=== PATIENT | female | born 1955 | race African-American/Black ===

== ENCOUNTER → 2020-10-16 10:01 | Outpatient (BNVA) | payer OTHER, SELFPAY | PROVIDERS: PCP Internal Medicine; Visit Provider Internal Medicine Pulmonary Disease | DX: J44.9 Chronic obstructive pulmonary disease, unspecified (principal); R06.00 Dyspnea, unspecified; I35.1 Nonrheumatic aortic (valve) insufficiency; I51.89 Other ill-defined heart diseases; R05 Cough; F17.200 Nicotine dependence, unspecified, uncomplicated; Z79.899 Other long term (current) drug therapy | CPT/HCPCS: 99212 ==

== ENCOUNTER → 2020-10-31 14:14 | Outpatient (BNVA) | payer OTHER, SELFPAY | PROVIDERS: Visit Provider Internal Medicine Cardiovascular Disease | DX: I35.1 Nonrheumatic aortic (valve) insufficiency (principal); R06.00 Dyspnea, unspecified; R07.89 Other chest pain; R94.31 Abnormal electrocardiogram [ECG] [EKG] | CPT/HCPCS: 93005; 99202 ==

== ENCOUNTER → 2020-12-12 08:11 | Outpatient (REF) | payer OTHER, SELFPAY ==
--- NOTE | 2020-12-12 | CA_ITS ---
Acquisition Time: 2020-12-12 09:27:55 Total Exercise Time: 00:04:45 Test Indications: Dyspnea Medications: SEE H Protocol: MARISELA Max HR: 139 BPM 88% of Pred: 157 BPM Max BP: 176/094 mmHG Max Work Load: 4.9 METS Exercise stress test using Marisela protocol, total of 4 min 45 sec. Pt tolerated well feeling SOB in second sdtage. Second stage held. METS 4.90 and TAPHR up to 88 %. Reports SOB and chest thightness that resolve in recovery. EKG with some PVC's in recovery, mild anterolateral ST depressions . Pt hypertensive home BP meds given. Nuclear images to follow. Test reviewed with Dr. Segal Referred By: Evens Mcneal Overread By: Angeles Walsh
--- NOTE | 2020-12-12 08:33 | NM_ITS ---
Exercise Myocardial perfusion study Indication: Shortness of breath evaluate for myocardial ischemia Technique: The patient was brought in for an exercise perfusion study on 12/12/2020. Patient performed exercise as per Tremaine protocol and was injected 25 mCi of sestamibi was given intravenously one target HR was achieved. Images were obtained using the SPECT gamma camera interlaced with the gating device. Images were obtained in supine position. Resting perfusion study was performed on 12/14/2020. Patient was administered 25 mCi of sestamibi intravenously at rest. Images were then obtained in supine position. Images were obtained with and without CT attenuation. Total DLP 61 mGy-cm. Images were processed with the software and compared side to side in short axis, horizontal long axis and vertical long axis views. Findings: The stress perfusion study showed non attenuated images show normal uptake of radiotracer in all segments of LV myocardium. Impression corrected images show minimally reduced uptake in the apex of the LV myocardium. The gated study shows normal LV systolic function with calculated LVEF of 74%. LV cavity is normal in size. The gated study shows normal systolic wall thickening and contraction of all segments. There is no transient ischemic dilation. Resting study shows no change in perfusion pattern compared to stress perfusion study. Gating at rest reveals normal systolic wall motion with ejection fraction at 57%. The findings are consistent with normal myocardial perfusion. NM/NM cardiolite stress test Impression: 1. Normal myocardial perfusion 2. Gated LVEF is 74% 3. Transient ischemic dilatation not present Stress EKG is equivocal for ischemia
== END ==
LOC: HO.CARD 08:11
PROVIDERS: Visit Provider Internal Medicine Cardiovascular Disease
DX: R06.00 Dyspnea, unspecified (principal)
CPT/HCPCS: 78452; 93017; A9500

== ENCOUNTER → 2020-12-19 12:26 | Outpatient (BNVA) | payer OTHER, SELFPAY | PROVIDERS: PCP Physician Assistant Medical; Visit Provider Internal Medicine Cardiovascular Disease | DX: R94.39 Abnormal result of other cardiovascular function study (principal); R94.31 Abnormal electrocardiogram [ECG] [EKG]; R07.89 Other chest pain; I35.1 Nonrheumatic aortic (valve) insufficiency | CPT/HCPCS: 99212 ==

== ENCOUNTER 2020-12-21 08:30 | Outpatient (REF) | payer OTHER, SELFPAY ==
[2020-12-21 09:24] LABS: Hematocrit 42.5 % (37-47); Mean Corpuscular HGB Conc 32.9 g/dl (31.0-35.0); Mean Corpuscular Hemoglobin 32.6 pg (27.0-33.0); Mean Corpuscular Volume 98.8 fL (80-98); Mean Platelet Volume 11.4 fL (9.4-12.3); Platelet Count 246 X10*3/uL (160-400); Red Cell Distribution Width 15.5 % (11.0-16.0); White Blood Count 8.6 X10*3/uL (4.8-10.8)
[2020-12-21 09:26] LABS: Prothrombin Time 11.4 SEC (10.8-13.0)
[2020-12-21 09:42] LABS: Anion Gap 16 (12-20); Blood Urea Nitrogen 15 mg/dL (9-16); Calcium 9.8 mg/dL (8.4-10.2); Carbon Dioxide 25 mmol/L (22-29); Chloride 101 mmol/L (96-108); Estimated Glomerular Filt Rate > 60; Glucose Random 118 mg/dL (60-115); Potassium 4.5 mmol/l (3.3-5.1); Sodium 137 mmol/L (135-145)
== END 2020-12-21 08:31 | disposition home or self-care (01) ==
LOC: HO.LAB 08:30
PROVIDERS: PCP Physician Assistant Medical; Visit Provider Internal Medicine Cardiovascular Disease
DX: R94.39 Abnormal result of other cardiovascular function study (principal)
CPT/HCPCS: 36415; 80048; 85027; 85610

== ENCOUNTER → 2021-01-31 14:06 | Outpatient (BNVA) | payer OTHER, SELFPAY | PROVIDERS: PCP Physician Assistant Medical; Visit Provider Internal Medicine Cardiovascular Disease | DX: R07.89 Other chest pain (principal); R06.00 Dyspnea, unspecified | CPT/HCPCS: 99212 ==

== ENCOUNTER → 2021-02-21 08:46 | Outpatient (BNVA) | payer OTHER, SELFPAY | PROVIDERS: PCP Physician Assistant Medical; Visit Provider Physician Assistant | DX: Z13.89 Encounter for screening for other disorder (principal) | CPT/HCPCS: Q3014 ==

== ENCOUNTER 2021-03-07 07:43 | Outpatient (REF) | payer OTHER, SELFPAY ==
--- NOTE | ~2021-03-07 | CT_ITS ---
EXAMINATION: CT CHEST WITHOUT CONTRAST CLINICAL INFORMATION: Pulmonary nodules COMPARISON: Previous chest CT January 2020 TECHNIQUE: Multidetector volumetric CT imaging of the chest was done. Axial MIP volume rendering provided. Sagittal and coronal reformatted images were obtained. This CT examination was performed using dose optimization techniques as appropriate, variously including the following: *Automated exposure control *Adjustment of mA and/or kV according to patient size (this includes techniques or standardized protocols for targeted exams where dose is matched to indication/reason for exam; i.e. extremities or head) *Use of iterative reconstruction technique DLP: 74 mGy-cm FINDINGS: LUNGS: There is evidence of emphysema. There is a small 2 mm calcified right upper lobe nodule axial image 116 series 8 that is stable. There is a 2 mm peripheral or subpleural right lower lobe nodule adjacent to the major fissure axial image 218 series 8 that is stable. MEDIASTINUM: There is a small right thyroid nodule that is stable. No follow-up is needed. There are small mediastinal lymph nodes. The heart does not appear enlarged. There is mild coronary artery calcification. The thoracic aorta is upper normal in size. There is no pericardial effusion. PLEURA: There is no pleural effusion. No pleural mass or thickening. AXILLA: No lymphadenopathy. UPPER ABDOMEN: Unremarkable. OSSEOUS STRUCTURES: There are mild degenerative changes of the right. CT/CT chest wo IV con IMPRESSION: Emphysema. Stable small pulmonary nodules. Mild coronary artery calcification. Upper normal-sized thoracic aorta.
== END 2021-03-07 07:44 | disposition home or self-care (01) ==
LOC: HO.CT 07:43
PROVIDERS: Visit Provider Internal Medicine Pulmonary Disease
DX: R91.8 Other nonspecific abnormal finding of lung field (principal)
CPT/HCPCS: 71250

== ENCOUNTER → 2021-03-26 07:23 | Outpatient (BNVA) | payer OTHER, SELFPAY | PROVIDERS: Visit Provider Physician Assistant | DX: Z13.89 Encounter for screening for other disorder (principal) | CPT/HCPCS: 99212; Q3014 ==

== ENCOUNTER 2021-05-22 14:10 | Outpatient (REF) | payer OTHER, SELFPAY ==
[2021-05-22 16:23] LABS: MANUAL DIFF FLAG NO
[2021-05-22 16:28] LABS: Basophils Absolute Auto 0.1 X10*3/uL (0.0-0.2); Eosinophils Absolute Auto 0.2 X10*3/uL (0.0-0.4); Eosinophils Percent Auto 2.3 % (0-4); Hematocrit 43.4 % (37-47); Hemoglobin 14.5 g/dl (12.0-16.0); Imm Gran Abs Auto 0.01 X10*3/uL (0.00-0.03); Imm Gran Pct Auto 0.1 % (0.0-0.4); Lymphocytes Absolute Auto 2.2 X10*3/uL (1.2-4.9); Lymphocytes Percent Auto 31.1 % (20-40); Mean Corpuscular HGB Conc 33.4 g/dl (31.0-35.0); Mean Corpuscular Hemoglobin 32.5 pg (27.0-33.0); Mean Corpuscular Volume 97.3 fL (80-98); Mean Platelet Volume 11.7 fL (9.4-12.3); Monocytes Absolute Auto 0.8 X10*3/uL (0.1-1.2); Monocytes Percent Auto 11.8 % (2-11); Neutrophils Absolute Auto 3.8 X10*3/uL (2.0-8.3); Neutrophils Percent Auto 53.7 % (45-73); Platelet Count 223 X10*3/uL (160-400); Red Blood Count 4.46 X10*6/uL (4.20-5.50); Red Cell Distribution Width 14.9 % (11.0-16.0)
[2021-05-22 16:53] LABS: Alanine Aminotransferase 28 U/L (0-31); Albumin Level 4.2 g/dL (3.5-5.0); Alkaline Phosphatase 116 U/L (39-117); Anion Gap 17 (12-20); Aspartate Amino Transferase 36 U/L (5-31); Bilirubin Total 0.7 mg/dL (0.0-1.0); Blood Urea Nitrogen 28 mg/dL (9-16); C Reactive Protein 1.04 mg/dL (< or = 0.50); Calcium 9.8 mg/dL (8.4-10.2); Carbon Dioxide 19 mmol/L (22-29); Chloride 103 mmol/L (96-108); Estimated Glomerular Filt Rate > 60; Glucose Random 87 mg/dL (60-115); Potassium 5.2 mmol/L (3.3-5.1); Sodium 134 mmol/L (135-145); Total Protein 7.8 g/dL (6.5-8.0)
[2021-05-22 17:40] LABS: Erythrocyte Sedimentation Rate 18 MM/HR (0-20)
[2021-05-25 01:12] LABS: Transglutaminase IgA 1 U/mL
[2021-05-27 17:33] LABS: Endomysial IgA Antibody Negative (Negative)
== END 2021-05-22 14:11 | disposition home or self-care (01) ==
LOC: HO.LAB 14:10
PROVIDERS: PCP Physician Assistant Medical; Visit Provider Physician Assistant
DX: R10.11 Right upper quadrant pain (principal); K59.09 Other constipation; R19.7 Diarrhea, unspecified; R12 Heartburn; R11.2 Nausea with vomiting, unspecified; R74.01 Elevation of levels of liver transaminase levels
CPT/HCPCS: 36415; 80053; 83516; 84443; 85025; 85652; 86140; 86255; 86256; 99212

== ENCOUNTER 2021-05-27 12:13 | Day surgery (SDC) | payer OTHER, SELFPAY ==
[2021-05-27 12:51] VITALS: BP 130/76; PULSE 62; RESP 16; TEMP 36.6; O2SAT 100; BMI 19.6
--- NOTE | 2021-05-27 13:18 | MHC.SHP ---
Pre-Procedural Eval Section A Date of Service: 05/27/21 Section B Chief Complaint: GERD, Vomiting Relevant Family History (Specify if Yes): No Relevant Social History: None Present Medications: see Short Stay Collaborative assessment Medical History: Significant History (COPD (chronic obstructive pulmonary disease) Heartburn) History of Previous Operations: Relevant previous surgery/procedure and date(s) (H/O colonoscopy History of cardiac catheterization History of esophagogastroduodenoscopy (EGD) History of foot surgery History of hysterectomy) Allergies: Allergies Allergy/AdvReac Type Severity Reaction Status Date / Time Sulfa (Sulfonamide Allergy Unknown Hives Verified 05/27/21 12:48 Antibiotics) Review of Systems Sugical H&P ROS: Negative: Constitution, Cardiovascular, Respiratory, Neurological, Psychiatric, Hem-Onc, Allergic/Immunologic, Gastrointestinal, Genitourinary, Musculoskeletal, Integumentary, Endocrine and Eyes/Ears/Nose/Throat Exam Surgical H&P Exam: Normal: HEENT, Normal: Heart, Normal: Lungs, Normal: Extremities, Normal: Abdomen, Normal: Skin and Normal: Neurological Plan Diagnosis/Plan: Unchanged I have reviewed the history and physical and performed a pertinent physical examination on my patient. No changes have occurred unless specified. EGD and colonoscopy fro diarrhea and nausea
--- NOTE | 2021-05-27 13:24 | HO.ANESPROP2 ---
[facility] Active Problems Active Problems: All Active Problems (Updated 05/27/21 @ 07:41 by Carmen Blackman PA-C) COPD (chronic obstructive pulmonary disease) (Acute) Dyspnea on exertion (Acute) Tobacco dependence (Acute) Aortic regurgitation (Acute) Diastolic dysfunction (Acute) Chronic cough (Acute) Chest discomfort (Acute) Abnormal ECG (Acute) Abnormal stress test (Acute) Nocturnal hypoxemia (Acute) Preop pulmonary/respiratory exam (Acute) Pulmonary nodules (Acute) Diarrhea (Acute) Nausea & vomiting (Acute) Heartburn (Acute) Past Medical History Medical History COPD (chronic obstructive pulmonary disease) Heartburn Family History Family History Mother Glaucoma Diabetes Lung cancer Father Diabetes CHF (congestive heart failure) Prostate cancer Heart valve disease Surgical History Surgical History H/O colonoscopy History of cardiac catheterization History of esophagogastroduodenoscopy (EGD) History of foot surgery History of hysterectomy Social History Social History Household Members: Friend(s) Alcohol intake: current Alcohol intake frequency: holidays/special occasions only Patient Tobacco Use Status: Current everyday Tobacco user Tobacco use type: Cigarette Cigarettes Per Day: 5 Years Smoked: 40 Smoked in Last 30 Days: Yes Patient Interested in Nicotine Replacement: No Patient Given Instructions on How to Stop Smoking: No Second Hand Smoke Exposure: No Use of substances other than those prescribed or required for medical reasons: No Are you DNR?: No Advance Directives: No Advance Directives Information Provided: No Patient : No Current occupational status: disabled Meds Allergies Allergy/AdvReac Type Severity Reaction Status Date / Time Sulfa (Sulfonamide Allergy Unknown Hives Verified 05/27/21 12:48 Antibiotics) Home Medications Medication Instructions Recorded Confirmed Last Taken Type albuterol sulfate 2.5 mg INHALATION QID 10/16/20 05/22/21 Unknown History albuterol sulfate 90 mcg/actuation 2 puff PO Q2H PRN 10/16/20 05/22/21 Unknown History aerosol inhaler amiloride 5 mg tablet 5 mg PO DAILY 10/16/20 05/22/21 Unknown History felodipine 5 mg tablet,extended 5 mg PO DAILY 10/16/20 05/22/21 Unknown History release 24 hr ketotifen fumarate 0.025 % (0.035 1 drp OPHTHALMIC (EYE) ml 10/16/20 05/22/21 Unknown History %) eye drops leflunomide 20 mg tablet 20 mg PO DAILY 10/16/20 05/22/21 Unknown History lisinopril 20 mg tablet 0 mg PO 10/16/20 05/22/21 Unknown History metoprolol succinate 100 mg 100 mg PO DAILY 10/16/20 05/22/21 Unknown History tablet,extended release 24 hr umeclidinium 62.5 mcg-vilanterol ea INHALATION 10/16/20 05/22/21 Unknown History 25 mcg/actuation powdr for inhalation varicella-zoster glycoE [id number] IM 10/16/20 05/22/21 Unknown History adj(PF) 50 mcg/0.5 mL IM susp, kit timolol maleate 0.5 % eye drops 1 drp OPHTHALMIC (EYE) BID 01/31/21 05/22/21 Unknown History venlafaxine 150 mg 300 mg PO DAILY cap 01/31/21 05/22/21 Unknown History capsule,extended release 24 hr hmpmldzhhn-bhqlwkhoclpqp-boqvgitf 0 tab PO 05/22/21 05/22/21 Unknown History 50 mg-325 mg-40 mg tablet rosuvastatin 20 mg tablet 20 mg PO BEDTIME 05/22/21 05/22/21 Unknown History tofacitinib 10 mg tablet 10 mg PO BID 05/22/21 05/22/21 05/27/21 08:00 History Exam Exam Date and Time: May 27, 2021 1324 Height,Weight and Vital Signs: Height 5 ft 1 in Weight 47.174 kg Last Vital Signs Temp 97.8 F 05/27/21 12:51 Pulse 62 05/27/21 12:51 Resp 16 05/27/21 12:51 BP 130/76 05/27/21 12:51 Pulse Ox 100 05/27/21 12:51 Airway Mallampati Class: II TM Dist: >3cm Neck ROM: Full Denture: Upper
[2021-05-27] MEDS: Lactated Ringers 1,000 ML 100 ML IVCONT (13:29)
--- NOTE | 2021-05-27 13:53 | P.BOP_ITS ---
Brief Operative Note Date of Service: 05/27/21 Pre-op diagnosis: diarrhea, nausea Post-op diagnosis: same Procedure: see op note Surgeon: Trudi Larson MD Anesthesia: MAC Was an Business Education Professor used for this Procedure?: No Estimated blood loss (mL): 0 Condition: stable Disposition: PACU
--- NOTE | 2021-05-27 13:54 | P.OP_ITS ---
Operative Note Operative Note Date of Service: 05/27/21 Narrative: Operative Information Procedure Description: EGD, Colonoscopy FLEXIBLE TRANSORAL UPPER GASTROINTESTINAL ENDOSCOPY AND COLONOSCOPY PROCEDURE NOTE UPPER ENDOSCOPY Consent: Indications for the procedure and potential complications of bleeding, perforation, reaction to medications and missed diagnosis were discussed with the patient and informed consent was obtained. Instrument: Olympus GIF H 190 J mid size upper endoscope Monitoring: Vital signs and clinical assessment, continuous EKG monitoring, Pulse oximetry, Carbon Dioxide monitoring and blood pressure monitoring were done throughout the procedure. Procedure: The patient was placed in the left lateral decubitis position and pre-procedure medications were administered and a bite block was placed. The endoscope was inserted into the mouth and advanced under direct vision to the third part of duodenum. A careful inspection was made as the upper endoscope was withdrawn including a retroflexed examination of the proximal stomach; Findings and interventions are described below. Findings: Larynx:normal Esophagus: GE junction at 38 cm, diaphragm hiatus at 38 cm, LA grade A esophagitis noted, bx taken from distal and proximal esophagus in separate jars Stomach: Scattered erosions and erythema. Biopsies were obtained. Grade 2 flap valve on retroflexed examination of the cardia. Duodenum: bulbar duodenitis, bx taken Intervention: Biopsies as noted above COLONOSCOPY Instrument: Olympus variable stiffness pediatric scope 190L Colonoscopy Monitoring: Vital signs and clinical assessment, continuous EKG monitoring, Pulse oximetry, Carbon Dioxide monitoring and blood pressure monitoring were done throughout the procedure. Colon withdrawal time was 10 minutes. Procedure: The patient was placed in the left lateral decubitis position and pre-procedure medications were administered. After a digital rectal examination of the ano-rectum, the video colonoscope was inserted into the rectum and advanced through the colon to the cecum/TI. The colonoscope was slowly withdrawn in a retrograde panoramic fashion and the colon mucosa was carefully examined including a retroflexed view of the rectum. Findings and interventions are described below. Procedure Difficulty:moderate Findings: Terminal Ileum-normal Random colon bx taken Cecum:normal Ascending Colon: normal Transverse Colon -normal Descending Colon:normal Sigmoid Colon: scattered small diverticula seen Rectum: Retroflexion with small internal hemorrhoids, grade I Anorectum - normal Colon preparation: [place] Bowel Preparation Scale Right colon; 2 Transverse colon: 2 Left colon; 2 (0 = Unprepared colon segment with mucosa not seen due to solid stool that cannot be cleared. 1 = Portion of mucosa of the colon segment seen, but other areas of the colon segment not well seen due to staining, residual stool and/or opaque liquid. 2 = Minor amount of residual staining, small fragments of stool and/or opaque liquid, but mucosa of colon segment seen well. 3 = Entire mucosa of colon segment seen well with no residual staining, small fragments of stool or opaque liquid) Impression and Post Procedure Diagnosis: Endoscopy Findings: esophagitis erosive gastritis duodenitis Colonoscopy Findings: internal hemorrhoids diverticular disease Plan: Await Pathology results Repeat Colonoscopy in 5 years deu to prep in some parts or earlier if clinically indicated High fiber diet leaflet avoid straining at stool, epsom salts and sitz bath, anusol supps or cream consider changing pantoprazole to another PPI, if H pylori pos then treat Above findings were reviewed with the patient and relevant handouts were provided if indicated.
[2021-05-27 14:19] VITALS: BP 90/44; PULSE 64; RESP 16; TEMP 36.1; O2SAT 99
[2021-05-27 14:34] VITALS: BP 104/63; PULSE 59; RESP 17; TEMP 36.2; O2SAT 100
== END 2021-05-27 15:03 | disposition home or self-care (01) ==
PROVIDERS: PCP Physician Assistant Medical; Visit Provider Internal Medicine Gastroenterology
PROC: (CPT 45380; principal; 2021-05-27 13:30)
DX: Z12.11 Encounter for screening for malignant neoplasm of colon (principal); K57.30 Diverticulosis of large intestine without perforation or abscess without bleeding; K64.0 First degree hemorrhoids; K21.9 Gastro-esophageal reflux disease without esophagitis; K29.50 Unspecified chronic gastritis without bleeding; K29.80 Duodenitis without bleeding; K20.80 Other esophagitis without bleeding; K44.9 Diaphragmatic hernia without obstruction or gangrene; J44.9 Chronic obstructive pulmonary disease, unspecified; Z79.899 Other long term (current) drug therapy
CPT/HCPCS: 45380; 43239; 88305; 88342

== ENCOUNTER → 2021-05-28 08:48 | Outpatient (BNVA) | payer OTHER, SELFPAY | PROVIDERS: PCP Physician Assistant Medical; Visit Provider Internal Medicine Pulmonary Disease | DX: J44.9 Chronic obstructive pulmonary disease, unspecified (principal); R05 Cough; R91.8 Other nonspecific abnormal finding of lung field | CPT/HCPCS: 99212 ==

== ENCOUNTER → 2021-06-04 09:58 | Outpatient (BNVA) | payer OTHER, SELFPAY | PROVIDERS: PCP Physician Assistant Medical; Visit Provider Physician Assistant | DX: R11.2 Nausea with vomiting, unspecified (principal); R12 Heartburn | CPT/HCPCS: Q3014 ==

== ENCOUNTER → 2021-07-30 09:06 | Outpatient (BNVA) | payer OTHER, SELFPAY | PROVIDERS: PCP Physician Assistant Medical; Visit Provider Internal Medicine Pulmonary Disease | DX: J44.9 Chronic obstructive pulmonary disease, unspecified (principal); R91.8 Other nonspecific abnormal finding of lung field | CPT/HCPCS: 99212 ==

== ENCOUNTER → 2021-08-06 08:37 | Outpatient (BNVA) | payer OTHER, SELFPAY | PROVIDERS: PCP Physician Assistant Medical; Visit Provider Physician Assistant | CPT/HCPCS: Q3014 ==

== ENCOUNTER → 2021-08-12 08:17 | Outpatient (REF) | payer OTHER, SELFPAY ==
--- NOTE | ~2021-08-12 | NM_ITS ---
EXAMINATION: AK RADIONUCLIDE SOLID FOOD GASTRIC EMPTYING 4-HOUR STUDY CLINICAL INFORMATION: Nausea with vomiting. COMPARISON: None TECHNIQUE: A standard meal consisting of 4 oz of Egg Beaters brand tagged with 1.0 microcuries Tc-99m Sulfur Colloid, 8 oz water and 2 slices of toast was administered orally to the patient. Images were obtained using a dual head gamma camera in the anterior and posterior projections over of the stomach immediately post ingestion and at hourly intervals up to 4 hours post ingestion. The anterior and posterior counts at each time interval were averaged using the geometric mean and expressed as percentage of the immediate post ingestion counts. FINDINGS: There is good visualization of activity in the stomach immediately post ingestion. As the study progresses, there is good clearance of activity from the stomach and visualization of progressively increasing small bowel activity. By the end of the study, there is almost no retention noted in the stomach. Retention in the stomach at each time interval was: 1 hour 71% (normal 37%-90%) 2 hours 39% (normal 30%-60%) 3 hours 4% 4 hours (4% (normal 0%-10%) AK/AK gastric emptying study IMPRESSION: Normal 4-hour solid food gastric emptying study.
[2021-08-12 13:59] LABS: MANUAL DIFF FLAG NO
[2021-08-12 14:11] LABS: Basophils Absolute Auto 0.1 X10*3/uL (0.0-0.2); Basophils Percent Auto 0.8 % (0-2); Eosinophils Absolute Auto 0.2 X10*3/uL (0.0-0.4); Eosinophils Percent Auto 1.7 % (0-4); Hematocrit 37.8 % (37-47); Hemoglobin 12.7 g/dl (12.0-16.0); Imm Gran Abs Auto 0.05 X10*3/uL (0.00-0.03); Imm Gran Pct Auto 0.5 % (0.0-0.4); Lymphocytes Absolute Auto 2.1 X10*3/uL (1.2-4.9); Lymphocytes Percent Auto 23.1 % (20-40); Mean Corpuscular HGB Conc 33.6 g/dl (31.0-35.0); Mean Corpuscular Hemoglobin 32.7 pg (27.0-33.0); Mean Corpuscular Volume 97.4 fL (80-98); Mean Platelet Volume 12.1 fL (9.4-12.3); Monocytes Absolute Auto 1.1 X10*3/uL (0.1-1.2); Monocytes Percent Auto 11.6 % (2-11); Neutrophils Absolute Auto 5.8 X10*3/uL (2.0-8.3); Neutrophils Percent Auto 62.3 % (45-73); Platelet Count 217 X10*3/uL (160-400); Red Blood Count 3.88 X10*6/uL (4.20-5.50); White Blood Count 9.3 X10*3/uL (4.8-10.8)
[2021-08-12 14:33] LABS: Alanine Aminotransferase 33 U/L (0-31); Albumin Level 3.6 g/dL (3.5-5.0); Alkaline Phosphatase 90 U/L (39-117); Anion Gap 14 (12-20); Aspartate Amino Transferase 34 U/L (5-31); Bilirubin Total 0.5 mg/dL (0.0-1.0); Blood Urea Nitrogen 21 mg/dL (9-16); Calcium 9.5 mg/dL (8.4-10.2); Carbon Dioxide 24 mmol/L (22-29); Chloride 106 mmol/L (96-108); Estimated Glomerular Filt Rate > 60; Glucose Random 76 mg/dL (60-115); Potassium 5.1 mmol/L (3.3-5.1); Sodium 139 mmol/L (135-145); Total Protein 6.4 g/dL (6.5-8.0)
[2021-08-12 14:40] LABS: Thyroid Stimulating Hormone 2.84 uIU/mL (0.32-4.0)
== END ==
LOC: HO.NUCMED 08:17
PROVIDERS: PCP Physician Assistant Medical; Visit Provider Physician Assistant
DX: R10.11 Right upper quadrant pain (principal); R11.2 Nausea with vomiting, unspecified; K62.5 Hemorrhage of anus and rectum; K59.09 Other constipation; R12 Heartburn
CPT/HCPCS: 36415; 78264; 80053; 84443; 85025; A9541

== ENCOUNTER → 2022-02-10 09:19 | Outpatient (BNVA) | payer OTHER, SELFPAY | PROVIDERS: PCP Physician Assistant Medical; Visit Provider Internal Medicine Pulmonary Disease | DX: J44.9 Chronic obstructive pulmonary disease, unspecified (principal); R06.00 Dyspnea, unspecified | CPT/HCPCS: 94640; 99212 ==

== ENCOUNTER 2022-03-21 09:46 | Outpatient (REF) | payer OTHER, SELFPAY ==
--- NOTE | ~2022-03-21 | CT_ITS ---
EXAMINATION: CT CHEST WITHOUT CONTRAST CLINICAL INFORMATION: Follow-up pulmonary nodules. COMPARISON: Chest CT from 02/21/2020 and 03/07/2021. TECHNIQUE: Multidetector volumetric CT imaging of the chest was done. Axial MIP volume rendering provided. Sagittal and coronal reformatted images were obtained. This CT examination was performed using dose optimization techniques as appropriate, variously including the following: *Automated exposure control *Adjustment of mA and/or kV according to patient size (this includes techniques or standardized protocols for targeted exams where dose is matched to indication/reason for exam; i.e. extremities or head) *Use of iterative reconstruction technique DLP: 100 mGy-cm FINDINGS: LUNGS AND PLEURA: Trachea and central airways are widely patent and normal in caliber. Moderate centrilobular emphysema. Again noted are a few small calcified pulmonary granulomas and a 0.3 cm noncalcified nodule, likely a lymph node, along the proximal right major fissure. No interval development of a suspicious lung nodule, mass or pleural effusion. Based on use of Fleischner Society guidelines, there are are no lung findings that require any recommendations for follow-up. CARDIOVASCULAR: The heart size is normal. No pericardial effusion. Mild atherosclerotic calcification of coronary arteries and thoracic aorta. No aortic aneurysm. Pulmonary arteries are normal in caliber. MEDIASTINUM AND LOWER NECK: No mediastinal mass. Esophagus is unremarkable. 0.8 cm hypodense nodule in the right thyroid gland is unchanged. There appears to be a small nodule in the left thyroid gland, as well. No clinically significant thyroid nodule is detected. No thyroid imaging follow-up recommended. LYMPHATICS: No pathologic sized lymph nodes. UPPER ABDOMEN: There is atherosclerotic calcification of the abdominal aorta. Adrenal glands are normal. SKELETAL AND CHEST WALL: Mild multilevel discovertebral degenerative change of the thoracic spine. No suspicious osseous lesions. CT/CT chest wo IV con IMPRESSION: * Moderate pulmonary emphysema. * No interval development of a suspicious pulmonary nodule, mass or lymphadenopathy. * Mild atherosclerosis of coronary arteries and thoracic aorta without aortic aneurysm.
== END 2022-03-21 09:47 | disposition home or self-care (01) ==
LOC: HO.CT 09:46
PROVIDERS: Visit Provider Internal Medicine Pulmonary Disease
DX: R91.8 Other nonspecific abnormal finding of lung field (principal)
CPT/HCPCS: 71250

== ENCOUNTER → 2022-09-18 12:41 | Outpatient (BNVA) | payer OTHER, SELFPAY | PROVIDERS: PCP Physician Assistant Medical; Referring Provider Physician Assistant Medical; Visit Provider Nurse Practitioner Family | DX: Z01.810 Encounter for preprocedural cardiovascular examination (principal); I35.1 Nonrheumatic aortic (valve) insufficiency; J44.9 Chronic obstructive pulmonary disease, unspecified; R07.89 Other chest pain; F17.210 Nicotine dependence, cigarettes, uncomplicated | CPT/HCPCS: 93005; 99212 ==

== ENCOUNTER → 2023-03-17 09:37 | Outpatient (REF) | payer OTHER, SELFPAY ==
--- NOTE | 2023-03-17 09:40 | CA_ITS ---
Transthoracic Echocardiogram Patient (Last, First, Middle): Vaishali Evans J Gender: Female Date of : 1955 Age: 67 Procedure Date: 03/17/2023 Procedure Type: Transthoracic Echocardiogram Location: OP Height: 154.94 cm Weight: 54.43 kg BSA: 1.52 m2 Heart Rate: bpm BP: 123 / 70 mmHg Manager Ccu: TO Referring MD: Melodie Goldberg BUSINESS ADMINISTRATION INSTRUCTORFranC Symptoms: I35.1 - Nonrheumatic aortic (valve) insufficiency Study Quality: Fair ECG Rhythm: Sinus Conclusions: - The left ventricular systolic function is normal. The calculated ejection fraction is 67% by biplane method. - There is mild to moderate aortic valve regurgitation. - There is mild dilatation of the sinuses of Valsalva measuring 3.74 cm and mild dilatation of the ascending aorta measuring 3.70 cm. Findings Left Ventricle Normal left ventricular cavity size. There is normal left ventricular wall thickness. The left ventricular systolic function is normal. The calculated ejection fraction is 67% by biplane method. There is no evidence of regional wall motion abnormalities. Evidence suggests grade I (mild) diastolic dysfunction. Right Ventricle Normal right ventricular cavity size and systolic function. Atria Both atria are normal in size. Aortic Valve There is a normal trileaflet aortic valve. There is mild calcification of the aortic valve. There is no aortic valve stenosis. There is mild to moderate aortic valve regurgitation. Mitral Valve There is mild anterior mitral leaflet thickening. There is mild mitral annular calcification. There is trace mitral valve regurgitation. There is no mitral valve stenosis. Pulmonic Valve There is trace pulmonic valve regurgitation. Tricuspid Valve There is trace tricuspid valve regurgitation. There is no evidence of pulmonary hypertension. Great Vessels There is mild dilatation of the sinuses of Valsalva measuring 3.74 cm and mild dilatation of the ascending aorta measuring 3.70 cm. Venous The inferior vena cava is normal in size and collapses greater than 50% with inspiration. Pericardium/Pleural There is no evidence of pericardial effusion. Prior Study Comparison No significant change compared to prior study dated: 08/09/2020. Measurements 2D Linear Measurements IVSd: 0.90 0.6-0.9/0.6-1.0 cm LVIDd: 4.14 3.9-5.3/4.2-5.9 cm LVIDd Index: 2.72 2.4-3.2/2.2-3.1 cm/m2 LVIDs: 2.42 2.0-3.6 cm LVPWd: 0.78 0.7-1.1 cm LA Diam: 2.70 2.7-3.8/3.0-4.0 cm LAIDs Index: 1.78 1.5-2.3 cm/m2 LV Mass: 131.02 67-162/88-224 g LV Mass Index: 86.19 43-95/49-115 g/m2 LVOT Diam: 2.00 3.0+(-)1.3 cm 2D Systolic Function EF 4C: 65.40 >55% EF 2C: 66.30 >55% EF BiP: 66.50 >55% Mitral Valve MV Pk E: 0.60 MV PK A: 0.87 MV Decel Time: 193.00 E/A: 0.70 E'Lateral: 6.42 E'Medial: 4.46 E/E' Med: 13.40 E/E' Lat: 9.30 PHT: 56.00 MVA PHT: 3.93 Decel [place]: 3.09 Aortic Valve AoV Pk Bari: 1.25 AoV Mn Bari: 0.82 AoV VTI: 0.21 AoV Pk Grad: 6.00 Aov Mn Grad: 3.00 STEPHENIE Cont.VTI: 2.54 AI Pk Bari: 4.10 AI [place]: 2.13 LVOT LVOT Pk Bari: 0.91 LVOT Mn Bari: 0.52 LVOT VTI: 0.17 LVOT Pk Grad: 3.00 LVOT Mn Grad: 1.00 LVOT Diam: 2.00 LVOT Area: 3.14 Diastolic Function MV Pk E: 0.60 MV Pk A: 0.87 E/A: 0.70 E'Medial: 4.46 E/E' Med: 13.40 E' Laterial: 6.42 E/E' Lat: 9.30 Right Ventricle TAPSE (mm): 19.00 TVS' Bari: 12.00 Tricuspid Valve TR Pk Bari: 2.35 TR Pk Grad: 22.00 RA Press: 3.00 RVSP: 25.00 Great Vessels Aorta Sinus of Valsalva: 3.74 2.0-3.[address] [place]: 3.42 1.7-3.4 cm Ao Asc: 3.70 2.1-3.4 cm Ao Arch: 3.10 Updated in Other Vendor System with Status of Final Jae Segal MD electronically signed on 03/19/2023 10:39:32 AM with status of Final
== END ==
LOC: HO.CARD 09:37
PROVIDERS: PCP Physician Assistant Medical; Visit Provider Nurse Practitioner Family
DX: I35.1 Nonrheumatic aortic (valve) insufficiency (principal)
CPT/HCPCS: 93306

== ENCOUNTER → 2023-04-14 10:44 | Outpatient (BNVA) | payer OTHER, SELFPAY | PROVIDERS: PCP Physician Assistant Medical; Visit Provider Physician Assistant | DX: R12 Heartburn (principal) | CPT/HCPCS: 99212 ==

== ENCOUNTER → 2023-04-30 12:33 | Outpatient (BNVA) | payer OTHER, SELFPAY | PROVIDERS: PCP Physician Assistant Medical; Referring Provider Physician Assistant Medical; Visit Provider Internal Medicine Cardiovascular Disease | DX: R00.2 Palpitations (principal); R94.31 Abnormal electrocardiogram [ECG] [EKG]; I35.1 Nonrheumatic aortic (valve) insufficiency | CPT/HCPCS: 93005; 99212 ==

== ENCOUNTER → 2023-05-20 10:28 | Outpatient (REF) | payer OTHER, SELFPAY ==
--- NOTE | 2023-05-20 10:31 | HM_ITS ---
* Total monitoring time 30 days. Wear time 13 days. * Underlying rhythm is sinus. Average ventricular rate 90/Min. Range 50 to 122/Min. * About 47% of the time, rate > 100/Min. * No evidence of atrial fibrillation. * Rare supraventricular and ventricular ectopy. * No patient symptoms reported. MTDD
== END ==
LOC: HO.CARD 10:28
PROVIDERS: PCP Physician Assistant Medical; Visit Provider Internal Medicine Cardiovascular Disease
DX: R00.2 Palpitations (principal)
CPT/HCPCS: 93270

== ENCOUNTER → 2023-05-20 10:31 | Outpatient (BNV) | payer OTHER, SELFPAY | PROVIDERS: PCP Physician Assistant Medical; Visit Provider Internal Medicine | DX: I47.1 Supraventricular tachycardia (principal) | CPT/HCPCS: 93272 ==

== ENCOUNTER 2023-06-12 07:58 | Day surgery (SDC) | payer OTHER, SELFPAY ==
[2023-05-19 11:39] VITALS: BMI 23.4
--- NOTE | 2023-05-20 11:56 | HO.ANESPROP2 ---
Documented by User: Sabrina Marquez NP 05/26/23 13:32 HPI - Anesthesia Eval Consult details Narrative: 67yo F for Upper Endoscopy, 06/12/23 Stable at routine cardiac office visit 04/2023 [facility] Active Problems Active Problems: All Active Problems (Updated 04/30/23 @ 13:46 by Evens Mcneal MD) Palpitations (Acute) Preop cardiovascular exam (Acute) Abdominal pain (Acute) COPD (chronic obstructive pulmonary disease) (Acute) Dyspnea on exertion (Acute) Tobacco dependence (Acute) Aortic regurgitation (Acute) Diastolic dysfunction (Acute) Chronic cough (Acute) Chest discomfort (Acute) Abnormal ECG (Acute) Abnormal stress test (Acute) Nocturnal hypoxemia (Acute) Preop pulmonary/respiratory exam (Acute) Pulmonary nodules (Acute) Diarrhea (Acute) Nausea & vomiting (Acute) Heartburn (Acute) Past Medical History Medical History Abdominal pain COPD (chronic obstructive pulmonary disease) Heartburn Family History Family History Mother Glaucoma Diabetes Lung cancer Father Diabetes CHF (congestive heart failure) Prostate cancer Heart valve disease Surgical History Surgical History H/O colonoscopy History of cardiac catheterization History of esophagogastroduodenoscopy (EGD) History of foot surgery History of hysterectomy Social History Social History Household Members: Friend(s) Alcohol intake: current Alcohol intake frequency: a few times a week Patient Tobacco Use Status: Current everyday Tobacco user Tobacco use type: Cigarette Cigarettes Per Day: 15 Years Smoked: 40 Smoked in Last 30 Days: Yes Second Hand Smoke Exposure: No Use of substances other than those prescribed or required for medical reasons: No Are you DNR?: No Advance Directives: No Advance Directives Information Provided: Yes Current occupational status: disabled Meds Allergies Allergy/AdvReac Type Severity Reaction Status Date / Time Sulfa (Sulfonamide Allergy Severe Hives Verified 06/12/23 08:33 Antibiotics) Home Medications Medication Instructions Recorded Confirmed Last Taken Type amiloride 5 mg tablet 5 mg PO DAILY 10/16/20 06/12/23 Unknown History felodipine 5 mg tablet,extended 5 mg PO DAILY 10/16/20 06/12/23 06/12/23 History release 24 hr ketotifen fumarate 0.025 % (0.035 1 drp ophthalmic (eye) DAILY 10/16/20 06/12/23 Unknown History %) eye drops timolol maleate 0.5 % eye drops 1 drp ophthalmic (eye) BID 01/31/21 06/12/23 Unknown History venlafaxine 150 mg 300 mg PO DAILY 01/31/21 06/12/23 Unknown History capsule,extended release 24 hr jxbsafqiyn-kfoezpuzfbczc-ydpoleww 1 tab PO NEEDED PRN Headache 05/22/21 06/12/23 Unknown History 50 mg-325 mg-40 mg tablet rosuvastatin 20 mg tablet 20 mg PO BEDTIME 05/22/21 06/12/23 Unknown History budesonide 160 mcg-glycopyr 9 2 inh inhalation Q12H 06/12/23 06/12/23 06/12/23 History mcg-formot 4.8 mcg/actuation HFA inhaler (Breztri Aerosphere) losartan 50 mg tablet 50 mg PO DAILY 06/12/23 06/12/23 06/12/23 History Exam Exam Date and Time: May 20, 2023 1156 Height,Weight and Vital Signs: Height 5 ft 1 in Weight 56.245 kg Narrative Narrative: ECHO 02/2023 Conclusions: - The left ventricular systolic function is normal.? The ? calculated ejection fraction is 67% by biplane method. ? - There is mild to moderate aortic valve regurgitation.? - There is mild dilatation of the sinuses of Valsalva measuring? 3.74 cm and mild dilatation of the ascending aorta measuring 3.70 cm.? ? EKG Sinus rhythm 88 beats per minute, low voltage, anterolateral T-wave inversions (old), QTC 413 milliseconds Cardiac cath Per cardiology office visit cardiac catheterization which did not show any significant coronary disease.? Her filling pressure at rest were normal. ? Assessment and Plan Assessment Anesthesia Assessment: Chart Reviewed Documented by User: Anila Quiles MD 06/12/23 09:26 [facility] Past Medical History Medical History Abdominal pain COPD (chronic obstructive pulmonary disease) Heartburn Family History Family History Mother Glaucoma Diabetes Lung cancer Father Diabetes CHF (congestive heart failure) Prostate cancer Heart valve disease Surgical History Surgical History H/O colonoscopy History of cardiac catheterization History of esophagogastroduodenoscopy (EGD) History of foot surgery History of hysterectomy History of Problems with Anesthesia: No Social History Social History Household Members: Friend(s) Alcohol intake: current Alcohol intake frequency: a few times a week Patient Tobacco Use Status: Current everyday Tobacco user Tobacco use type: Cigarette Cigarettes Per Day: 15 Years Smoked: 40 Smoked in Last 30 Days: Yes Second Hand Smoke Exposure: No Use of substances other than those prescribed or required for medical reasons: No Are you DNR?: No Advance Directives: No Advance Directives Information Provided: Yes Current occupational status: disabled Meds Allergies Allergy/AdvReac Type Severity Reaction Status Date / Time Sulfa (Sulfonamide Allergy Severe Hives Verified 06/12/23 08:33 Antibiotics) Home Medications Medication Instructions Recorded Confirmed Last Taken Type amiloride 5 mg tablet 5 mg PO DAILY 10/16/20 06/12/23 Unknown History felodipine 5 mg tablet,extended 5 mg PO DAILY 10/16/20 06/12/23 06/12/23 History release 24 hr ketotifen fumarate 0.025 % (0.035 1 drp ophthalmic (eye) DAILY 10/16/20 06/12/23 Unknown History %) eye drops timolol maleate 0.5 % eye drops 1 drp ophthalmic (eye) BID 01/31/21 06/12/23 Unknown History venlafaxine 150 mg 300 mg PO DAILY 01/31/21 06/12/23 Unknown History capsule,extended release 24 hr abojvxupth-hdhkcebjqkczo-snynovrr 1 tab PO NEEDED PRN Headache 05/22/21 06/12/23 Unknown History 50 mg-325 mg-40 mg tablet rosuvastatin 20 mg tablet 20 mg PO BEDTIME 05/22/21 06/12/23 Unknown History budesonide 160 mcg-glycopyr 9 2 inh inhalation Q12H 06/12/23 06/12/23 06/12/23 History mcg-formot 4.8 mcg/actuation HFA inhaler (Breztri Aerosphere) losartan 50 mg tablet 50 mg PO DAILY 06/12/23 06/12/23 06/12/23 History Exam Airway Mallampati Class: III TM Dist: >3cm Neck ROM: Full Denture: Upper Loose/Missing/Broken Teeth: Yes, Upper and Lower Heart: RRR Lungs: CTA Assessment and Plan Assessment Anesthesia Assessment: Anesthesia Plan Discussed Final Anesthetic Review History of Problems with Anesthesia: No NPO: Yes ASA Class: III Final Preanesthetic Review: Meds/Allgs Chart Reviewed, Consent Obtained/Reviewed and Anes Risks/Benef Reviewed Patient Risk: Intermediate Procedure Risk: Intermediate Anesthetic Plan Anesthetic Plan: MAC: Disposition: Standard PACU
[2023-06-12 08:47] VITALS: BP 130/79; PULSE 82; RESP 16; TEMP 36.7; O2SAT 98; BMI 23.0
[2023-06-12] MEDS: Albuterol Sulfate (0.083%) 2.5 MG/3 ML VIAL.NEB INHALE (08:56)
[2023-06-12 08:58] VITALS: PULSE 80; O2SAT 97
--- NOTE | 2023-06-12 09:26 | P.HPSUR_ITS ---
Documented by User: Trudi Larson MD 06/12/23 09:28 Pre-Procedural Eval Section A Date of Service: 06/12/23 Section B Chief Complaint: reflux disease Relevant Family History (Specify if Yes): No Relevant Social History: Tobacco Use Present Medications: see Short Stay Collaborative assessment Medical History: Significant History (Abdominal pain COPD (chronic obstructive pulmonary disease) Heartburn) History of Previous Operations: Relevant previous surgery/procedure and date(s) (H/O colonoscopy History of cardiac catheterization History of esopha gogastroduodenoscopy (EGD) History of foot surgery History of hysterectomy) Allergies: Allergies Allergy/AdvReac Type Severity Reaction Status Date / Time Sulfa (Sulfonamide Allergy Severe Hives Verified 06/12/23 08:33 Antibiotics) Review of Systems Sugical H&P ROS: Negative: Constitution, Cardiovascular, Respiratory, Neurological, Psychiatric, Hem-Onc, Allergic/Immunologic, Gastrointestinal, Genitourinary, Musculoskeletal, Integumentary, Endocrine and Eyes/Ears/Nose/Th roat Exam Surgical H&P Exam: Normal: HEENT, Normal: Heart, Normal: Lungs, Normal: Extremities, Normal: Abdomen, Normal: Skin and Normal: Neurological Plan Diagnosis/Plan: Unchanged I have reviewed the history and physical and performed a pertinent physical examination on my patient. No changes have occurred unless specified. Time Spent With Patient Time: Total time managing care of this patient today ____ minutes. Documented by User: Anila Quiles MD 06/12/23 09:26 Pre-Procedural Eval Section A Date of Service: 06/12/23 Section B Chief Complaint: reflux disease
--- NOTE | 2023-06-12 09:29 | W.PM.OPN ---
Operative Note Operative Note Date of Service: 06/12/23 Narrative: Procedure Description: EGD Indication: GERD Anesthesia: MAC FLEXIBLE TRANSORAL UPPER GASTROINTESTINAL ENDOSCOPY UPPER ENDOSCOPY Consent: Indications for the procedure and potential complications of bleeding, perforation, reaction to medications and missed diagnosis were discussed with the patient and informed consent was obtained. Instrument: Olympus GIF H 190 J mid size upper endoscope Monitoring: Vital signs and clinical assessment, continuous EKG monitoring, Pulse oximetry, Carbon Dioxide monitoring and blood pressure monitoring were done throughout the procedure. Procedure: The patient was placed in the left lateral decubitis position and pre-procedure medications were administered and a bite block was placed. The endoscope was inserted into the mouth and advanced under direct vision to the third part of duodenum. A careful inspection was made as the upper endoscope was withdrawn including a retroflexed examination of the proximal stomach; Findings and interventions are described below. Findings: Larynx:normal Esophagus: GE junction at 36? cm, diaphragm hiatus at 38 cm, consistent with 2 cm sliding hiatal hernia. LA grade A esophagitis noted, bx taken from distal and proximal esophagus in separate jars as well as the GEJ Stomach: Patchy erythema. Biopsies were obtained. Grade 2 flap valve on retroflexed examination of the cardia. Duodenum: normal Intervention: Biopsies as noted above Impression/Findings: erosive esophagitis gastritis hiatal hernia PLAN: smoking cessation change PPI to nexium and see if get better response GERD precautions
[2023-06-12] MEDS: Lactated Ringers 1,000 ML 100 ML IVCONT (09:41)
[2023-06-12 09:55] VITALS: BP 124/77; PULSE 102; RESP 18; TEMP 36.9; O2SAT 98
[2023-06-12 10:10] VITALS: BP 126/78; PULSE 91; RESP 18; TEMP 36.8; O2SAT 98
== END 2023-06-12 10:41 | disposition home or self-care (01) ==
PROVIDERS: PCP Physician Assistant Medical; Visit Provider Internal Medicine Gastroenterology
PROC: 0DJ08ZZ Inspection of Upper Intestinal Tract, Via Natural or Artificial Opening Endoscopic (ICD-10-PCS; CPT 43235; principal; 2023-06-12 09:50)
DX: K21.9 Gastro-esophageal reflux disease without esophagitis (principal); K20.80 Other esophagitis without bleeding; K29.50 Unspecified chronic gastritis without bleeding; K44.9 Diaphragmatic hernia without obstruction or gangrene; J44.9 Chronic obstructive pulmonary disease, unspecified; Z79.899 Other long term (current) drug therapy; Z88.2 Allergy status to sulfonamides; F17.210 Nicotine dependence, cigarettes, uncomplicated
CPT/HCPCS: 43239; 88305; 88342; 94640

== ENCOUNTER → 2023-06-12 07:58 | Outpatient (BNV) | payer OTHER, SELFPAY | PROVIDERS: PCP Physician Assistant Medical; Visit Provider Internal Medicine Gastroenterology | DX: K29.60 Other gastritis without bleeding (principal) | CPT/HCPCS: 43239 ==

== ENCOUNTER 2023-07-02 09:20 | Outpatient (AMB) | payer OTHER, SELFPAY ==
--- NOTE | 2023-07-02 09:26 | MHC.OFFVIS ---
Intake Vital Signs 07/02/23 09:27 Height 5 ft 1 in Weight 125 lb 3.561 oz BMI 23.7 BP 124/66 Blood Pressure Location Lt brachial Position Sitting Pulse 87 Intake Visit Reasons: s/p EGD Larson r/s from 06/25/23 Intake Note: Vaishali presents in office as a est.patient for a EGD f/u PT CC: pt reports having GERD, abdominal pain pt denies any other GI Issues Career Based Intervention Coordinator Required: No Accompanied by: Self / Same As Patient Allergies Sulfa (Sulfonamide Antibiotics) Allergy (Severe, Verified 07/02/23 09:26) Hives HPI HPI Comments History of Present Illness Details A 67-year-old female with persistent heartburn- much worse at night-follows up after recent EGD Esomeprozole seems not much difference-taking Pepcid at HS She quit smoking Social etoh- rarely drinks non issues Sclera derma- imuran-50 bid- COPD has been doing well She has no issues with her bowels Appetite is very good No nausea, vomiting, hematochezia fever chills PFSH Medical History Abdominal pain COPD (chronic obstructive pulmonary disease) Heartburn Surgical History H/O colonoscopy History of cardiac catheterization History of esophagogastroduodenoscopy (EGD) History of foot surgery History of hysterectomy Family History Mother Glaucoma Diabetes Lung cancer Father Diabetes CHF (congestive heart failure) Prostate cancer Heart valve disease Social History Household Members: Friend(s) Alcohol intake: current Alcohol intake frequency: a few times a week Patient Tobacco Use Status: Current everyday Tobacco user Tobacco use type: Cigarette Cigarettes Per Day: 15 Years Smoked: 40 Second Hand Smoke Exposure: No Current occupational status: disabled Physical Exam Vital Signs: Last Vital Signs Pulse 87 07/02/23 09:27 BP 124/66 07/02/23 09:27 BMI result Body Mass Index 23.7 Results Reviewed Results Reviewed: Impression/Findings: erosive esophagitis gastritis hiatal hernia PLAN: smoking cessation change PPI to nexium and see if get better response GERD precautions Name:?Vaishali Evans Age/Sex: 67/F Attending: Trudi Larson MD : 1955 Submitted by: Trudi Larson MD Copies to: Toñito John MR #: [id number] ? Status: DEP [facility] [place] Collected: 06/12/23 Location: [facility] Received: 06/12/23 Diagnosis A.? Duodenum, biopsy:? Chronic inactive duodenitis. B.? Stomach, biopsy:? Antral-type and oxyntic mucosa with mild chronic inactive inflammation; no Helicobacter organisms seen. C.? GE junction, biopsy: - Cardiac-type mucosa with moderate chronic inactive inflammation; no fully-developed intestinal metaplasia seen. - Squamous mucosa within normal limits. D.? Esophagus, distal, biopsy:? Squamous epithelium within normal limits; no inflammation seen. E.? Esophagus, proximal biopsy:? Squamous epithelium within normal limits; no inflammation seen. Assessment & Plan Assessment & Plan (1) Heartburn: Code(s): R12 - Heartburn Plan: Discussed medication consistent Plan Reviewed plan of care Patient Instructions: Continue esomeprazole and famotidine Reflux precautions Reviewed previous colonoscopy due for repeat 2025 Encouraged to call questions or concerns Appreciate the opportunity assist in the care the patient Coding Level of Care Code Est Pt Level 3 (79697) Diagnoses Heartburn R12 Time Spent (min) 30
[2023-07-02 09:27] VITALS: BP 124/66; PULSE 87; BMI 23.7
== END 2023-07-02 11:42 | disposition home or self-care (01) ==
PROVIDERS: PCP Physician Assistant Medical; Visit Provider Physician Assistant
DX: R12 Heartburn (principal)
CPT/HCPCS: 99213

== ENCOUNTER → 2023-07-02 09:20 | Outpatient (BNVA) | payer OTHER, SELFPAY | PROVIDERS: PCP Physician Assistant Medical; Visit Provider Physician Assistant | DX: R12 Heartburn (principal) | CPT/HCPCS: 99212 ==

== ENCOUNTER 2023-12-16 10:08 | Outpatient (AMB) | payer OTHER, SELFPAY ==
[2023-12-16 10:18] VITALS: BP 120/60; BMI 23.1
--- NOTE | 2023-12-16 10:18 | MHC.OFFVIS ---
Intake Vital Signs 12/16/23 10:18 Height 5 ft 1 in Weight 122 lb 2.177 oz BMI 23.1 BP 120/60 Blood Pressure Location Lt brachial Position Sitting Intake Visit Reasons: 3 mth fu Intake Note: 3 mnth/ pt its been feeling fine. Director Financial Analysis Required: No Accompanied by: Self / Same As Patient Allergies Sulfa (Sulfonamide Antibiotics) Allergy (Severe, Verified 09/30/23 12:40) Hives Medication List - Last Reconciled 12/16/23 by Evens Mcneal MD amiloride 5 mg PO DAILY kwnkbldvnk-ozimyfql-reysoghuvy 160-9-4.8 mcg/actuation (Breztri Aerosphere) 2 inhalations inhalation Q12H lyqlmmertj-tpeylygiuxdwv-kvpl 50-325-40 mg 1 tab PO NEEDED PRN esomeprazole magnesium 40 mg PO DAILY famotidine 40 mg PO DAILY 30 days felodipine ER 5 mg PO DAILY ipratropium-albuterol 0.5 mg-3 mg(2.5 mg base)/3 mL 3 mL inhalation Q4-6H PRN 30 days ketotifen fumarate 0.025%(0.035%) 1 drp ophthalmic (eye) DAILY losartan 50 mg PO DAILY rosuvastatin 20 mg PO BEDTIME timolol maleate 0.5% 1 drp ophthalmic (eye) BID venlafaxine ER 300 mg PO DAILY HPI HPI Comments History of Present Illness Details 68-year-old female here for follow-up. She was taken for cardiac catheterization which did not show any significant coronary disease. Her filling pressure at rest were normal. She returns for follow-up today. She is denying any chest discomfort. She continues to have dyspnea on exertion. She said she quit smoking but restarted and is seriously thinking about quitting again. She had echocardiography performed recently which showed preserved LV function. She has dpam-cf-zenuzink aortic insufficiency. She also has mild dilation of the ascending aorta 3.7 cm. She did not have pulmonary hypertension by invasive assessment or by echocardiography and has background of scleroderma. 12/16/2023: She returns for follow-up. She has been following with thoracic surgery. She has been told that she has some pulmonary nodules and may need resection or biopsy. She has dyspnea on exertion with activity. She has been walking 30 minutes per day which she does 5 times a week. No chest discomfort. She has no coronary disease previously. No pulmonary hypertension. Zpvc-oa-atybefuc aortic insufficiency was noted previously which is stable. [facility] Medical History (Updated 09/30/23 @ 12:40 by Dian Quigley) Abdominal pain COPD (chronic obstructive pulmonary disease) Heartburn Surgical History H/O colonoscopy History of esophagogastroduodenoscopy (EGD) History of cardiac catheterization History of foot surgery History of hysterectomy Family History Mother Glaucoma Diabetes Lung cancer Father Diabetes CHF (congestive heart failure) Prostate cancer Heart valve disease Social History Household Members: Friend(s) Alcohol intake: current Alcohol intake frequency: a few times a week Patient Tobacco Use Status: Current everyday Tobacco user Tobacco use type: Cigarette Cigarettes Per Day: 15 Years Smoked: 40 Second Hand Smoke Exposure: No Current occupational status: disabled Review of Systems Const Reports chills, Reports fatigue, Reports fever(s), Reports frequent falls, Reports weakness, Reports weight gain and Reports weight loss ENT Reports dizziness Card Reports chest pain, Reports leg edema, Reports lightheadedness, Reports palpitations, Reports dyspnea and Reports dyspnea on exertion Resp Reports cough, Reports dyspnea and Reports dyspnea on exertion GI Reports hematochezia Musc Reports abnormal gait, Reports muscle weakness, Reports numbness, Reports radiating pain into limb and Reports tingling Neuro Reports abnormal gait, Reports dizziness, Reports frequent falls, Reports numbness, Reports tingling and Reports weakness Endo Reports fatigue and Reports palpitations Physical Exam Vital Signs: Last Vital Signs BP 120/60 12/16/23 10:18 BMI result Body Mass Index 23.1 GENERAL APPEARANCE: in no acute distress, well developed, well nourished. NECK/THYROID: no carotid bruit, no jugular venous distention. SKIN: no suspicious lesions, warm and dry. HEART: no murmurs, regular rate and rhythm, S1, S2 normal. LUNGS: clear to auscultation bilaterally. ABDOMEN: normal, bowel sounds present, soft, nontender, nondistended. EXTREMITIES: no clubbing, cyanosis, or edema. PERIPHERAL PULSES: equal. NEUROLOGIC: nonfocal, alert and oriented. PSYCH: mood/affect full range. Assessment & Plan Assessment & Plan (1) Aortic regurgitation: Code(s): I35.1 - Nonrheumatic aortic (valve) insufficiency (2) Dyspnea on exertion: Code(s): R06.00 - Dyspnea, unspecified Plan Pleasant 68-year-old female with background of COPD, scleroderma, ocug-hj-qeabvdyt aortic insufficiency and dyspnea on exertion. Dyspnea on exertion is mostly due to lung disease. Clinically not in heart failure. No evidence of pulmonary hypertension previously. Overall clinically stable. She has stopped smoking over the last 2 weeks. Blood pressure control is good. If she requires thoracic surgery then she is intermediate risk for perioperative cardiovascular complications. She will see us back in few months. Thank you for allowing me to participate in the care of your patient. Please feel free to contact me if you have any questions. Coding Level of Care Code Est Pt Level 4 (31991) Diagnoses Aortic regurgitation I35.1 Dyspnea on exertion R06.00
== END 2023-12-16 11:04 | disposition home or self-care (01) ==
PROVIDERS: PCP Physician Assistant Medical; Visit Provider Internal Medicine Cardiovascular Disease
DX: I35.1 Nonrheumatic aortic (valve) insufficiency (principal); R06.00 Dyspnea, unspecified
CPT/HCPCS: 99214

== ENCOUNTER → 2023-12-16 10:08 | Outpatient (BNVA) | payer OTHER, SELFPAY | PROVIDERS: PCP Physician Assistant Medical; Visit Provider Internal Medicine Cardiovascular Disease | DX: I35.1 Nonrheumatic aortic (valve) insufficiency (principal); R06.00 Dyspnea, unspecified | CPT/HCPCS: 99212 ==

== ENCOUNTER 2024-04-21 08:18 | Outpatient (AMB) | payer OTHER, SELFPAY ==
[2024-04-21 08:25] VITALS: BP 124/72; PULSE 76; BMI 24.1
--- NOTE | 2024-04-21 08:25 | A.OFFVIS_ITS ---
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: No Allergies Sulfa (Sulfonamide Antibiotics) Allergy (Severe, Verified 04/21/24 08:28) Hives Medication List - Last Reconciled 04/21/24 by Melodie Goldberg NP-C amiloride 5 mg PO DAILY esfxcsiujj-qeyegiqx-lmnuxnfqla 160-9-4.8 mcg/actuation (Breztri Aerosphere) 2 inhalations inhalation Q12H odninhzpqd-lvehhxrwjsetc-lypt 50-325-40 mg 1 tab PO NEEDED PRN esomeprazole magnesium 40 mg PO DAILY famotidine 40 mg PO DAILY felodipine ER 5 mg PO DAILY ipratropium-albuterol 0.5 mg-3 mg(2.5 mg base)/3 mL 3 mL inhalation Q4-6H PRN 30 days losartan 50 mg PO DAILY rosuvastatin 20 mg PO BEDTIME timolol maleate 0.5% 1 drp ophthalmic (eye) BID venlafaxine ER 300 mg PO DAILY HPI HPI [facility]/: Details: Vaishali is a 68-year-old female with past medical history of smoking, COPD, chest discomfort with cardiac catheterization showing no significant coronary artery disease, pbwj-kz-lftnrvdu aortic regurgitation who presents for follow-up. Today she reports that she has ongoing chronic issues with shortness of breath. She states her activity level is greatly limited by this symptom. She denies PND, orthopnea or edema. She will notice some chest tightness when she is short of breath. She does not have any other types of chest discomfort. No heart palpitations, lightheadedness, presyncope, syncope, falls. She did quit smoking since last visit. She is following closely with pulmonology. [facility] Medical History Abdominal pain COPD (chronic obstructive pulmonary disease) Heartburn Surgical History H/O colonoscopy History of esophagogastroduodenoscopy (EGD) History of cardiac catheterization History of foot surgery History of hysterectomy Family History Mother Glaucoma Diabetes Lung cancer Father Diabetes CHF (congestive heart failure) Prostate cancer Heart valve disease Social History Household Members: Friend(s) Alcohol intake: current Alcohol intake frequency: a few times a week Patient Tobacco Use Status: Current everyday Tobacco user Tobacco use type: Cigarette Cigarettes Per Day: 15 Years Smoked: 40 Second Hand Smoke Exposure: No Current occupational status: disabled Review of Systems Const All systems reviewed & are unremarkable except as noted in HPI and below ENT Denies dizziness Card Details: chest tight with sob Denies chest pain, Denies chest pain at rest, Denies chest pain with activity, Denies rapid heart rate, Denies pedal edema, Denies edema, Denies leg edema, Denies lightheadedness, Denies palpitations, Reports dyspnea, Reports dyspnea on exertion and Denies orthopnea Resp Denies cough, Reports dyspnea and Reports dyspnea on exertion GI Denies hematochezia and Denies change in stool character Musc Denies abnormal gait, Denies limited range of motion, Denies muscle cramps, Denies muscle weakness, Denies numbness, Denies radiating pain into limb, Denies stiffness and Denies tingling Neuro Denies abnormal gait, Denies dizziness, Denies numbness and Denies tingling Endo Denies palpitations Physical Exam Vital Signs: Last Vital Signs Pulse 76 04/21/24 08:25 BP 124/72 04/21/24 08:25 BMI result Body Mass Index 24.1 Const General: cooperative, healthy appearing, comfortable and no acute distress Orientation/consciousness: patient oriented x3 Neck Neck: Yes normal visual inspection and Yes no JVD Resp Other: diminshed lung sounds Effort & Inspection: normal respiratory effort Auscultation: clear to auscultation bilaterally, no rales, no rhonchi and no wheezes Cardio Jugular venous distension: no JVD Rate: regular rate Rhythm: regular rhythm Heart sounds: S1 normal heart sound present, S2 normal heart sound present, no murmurs and no rubs Neuro General: patient oriented x3 Extrem General: Yes normal to inspection, No no pedal edema and No calf tenderness Psych Appearance: grossly normal Mental Status: mental status grossly normal Speech and movement: Normal speech and movement present Assessment & Plan Assessment & Plan (1) Dyspnea on exertion: Code(s): R06.00 - Dyspnea, unspecified Category: Medical Plan: Symptom of shortness of breath with activity. Also reports chest tightness with activity. She previously had a stress test which led to a cardiac catheterization showing no significant coronary artery disease. Her last echocardiogram was done on 03/17/2023 showing EF 67%, eieg-gf-faubgltx aortic regurgitation, grade 1 diastolic dysfunction. She feels her symptom of shortness of breath has worsened over the last year. Her activity level is greatly affected by her shortness of breath. She does not appear fluid overloaded on exam. She does follow with pulmonology. She may benefit from pulmonary rehab. She states this has been mentioned to her in the past. No clear cardiac cause for her shortness of breath. She does have aortic regu rgitation. Will update an echo prior to next visit. Cardiology follow-up in 6 months, sooner if needed. (2) COPD (chronic obstructive pulmonary disease): Code(s): J44.9 - Chronic obstructive pulmonary disease, unspecified Category: Medical Plan: As above (3) Chest discomfort: Comment: Coronary artery disease was ruled out with cardiac catheterization. Filling pressures were normal at rest. Code(s): R07.89 - Other chest pain Category: Medical Plan: Chest tightness with her shortness of breath. No other types of chest discomfort. Prior cardiac catheterization showed no significant CAD. Signs and symptoms of angina reviewed with her. (4) Aortic regurgitation: Code(s): I35.1 - Nonrheumatic aortic (valve) insufficiency Category: Medical Plan: Aemd-gj-lctmowsv on last echo. Plan Time spent on chart review, documentation, interview and assessment Orders: Orders CA echo transthoracic complete Today I35.1 - Nonrheumatic aortic (valve) insufficiency, I51.89 - Other ill-defined heart diseases Coding Level of Care Code Est Pt Level 4 (59768) Diagnoses Dyspnea on exertion R06.00 COPD (chronic obstructive pulmonary disease) J44.9 Chest discomfort R07.89 Aortic regurgitation I35.1 Time Spent (min) 28
== END 2024-04-21 09:01 | disposition home or self-care (01) ==
PROVIDERS: PCP Physician Assistant Medical; Visit Provider Nurse Practitioner Family
DX: R06.00 Dyspnea, unspecified (principal); J44.9 Chronic obstructive pulmonary disease, unspecified; R07.89 Other chest pain; I35.1 Nonrheumatic aortic (valve) insufficiency
CPT/HCPCS: 99214

== ENCOUNTER → 2024-04-21 08:18 | Outpatient (BNVA) | payer OTHER, SELFPAY | PROVIDERS: PCP Physician Assistant Medical; Visit Provider Nurse Practitioner Family | DX: R06.00 Dyspnea, unspecified (principal); J44.9 Chronic obstructive pulmonary disease, unspecified; R07.89 Other chest pain; I35.1 Nonrheumatic aortic (valve) insufficiency | CPT/HCPCS: 99212 ==

== ENCOUNTER → 2024-05-27 09:07 | Outpatient (REF) | payer OTHER, SELFPAY ==
--- NOTE | 2024-05-27 09:12 | CA_ITS ---
Transthoracic Echocardiogram Patient (Last, First, Middle): Vaishali Evans J Gender: Female Date of : 1955 Age: 68 Procedure Date: 05/27/2024 Procedure Type: Transthoracic Echocardiogram Location: OP Height: 154.94 cm Weight: 58.51 kg BSA: 1.57 m2 Heart Rate: 66 bpm BP: 95 / 65 mmHg Medical Clerk: KIMBERLY Allan MD: Melodie Goldberg MANUFACTURER-C Safemaker: Dale Francois MD Symptoms: I35.1 - Nonrheumatic aortic (valve) insufficiency Study Quality: Adequate ECG Rhythm: Sinus Conclusions: - 1. Normal LV ejection fraction of 55-60% with grade 1 diastolic dysfunction 2. Mild aortic regurgitation 3. Mildly dilated ascending aorta at 3.8 cm 4. Normal RV systolic pressure 5. No gross pericardial effusion Findings Left Ventricle Normal left ventricular size, thickness, and systolic function. The visually estimated ejection fraction is between 55-60%. Spectral Doppler is indicative of an impaired relaxation filling pattern. E/E prime ratio is <8, consistent with normal filling pressures. Evidence suggests grade I (mild) diastolic dysfunction. Peak GLS is -18.2%, within normal limits. Right Ventricle Normal right ventricular cavity size and systolic function. Atria Both atria are normal in size. There is lipomatous hypertrophy of the interatrial septum. There is no evidence of interatrial shunt. Aortic Valve Normal aortic valve structure and function. There is no aortic valve stenosis. There is mild aortic valve regurgitation. Mitral Valve There is mild anterior and posterior mitral leaflet thickening. There is trace mitral valve regurgitation. There is no mitral valve stenosis. Pulmonic Valve The pulmonic valve is likely normal. Tricuspid Valve Normal tricuspid valve structure. There is mild tricuspid valve regurgitation. The right ventricular systolic pressure is normal. The right ventricular systolic pressure is 19 mmHg. Normal right atrial pressure. There is no evidence of pulmonary hypertension. Great Vessels The pulmonary artery was not well visualized. There is mild dilatation of the ascending aorta measuring 3.80 cm. Venous The inferior vena cava is normal in size and collapses greater than 50% with inspiration. Pericardium/Pleural There is no evidence of pericardial effusion. Prior Study Comparison No significant change compared to prior study dated: 03/17/2023. Measurements 2D Linear Measurements IVSd: 1.16 0.6-0.9/0.6-1.0 cm LVIDd: 4.16 3.9-5.3/4.2-5.9 cm LVIDd Index: 2.65 2.4-3.2/2.2-3.1 cm/m2 LVIDs: 1.51 2.0-3.6 cm LVPWd: 0.89 0.7-1.1 cm LA Diam: 1.90 2.7-3.8/3.0-4.0 cm LAIDs Index: 1.21 1.5-2.3 cm/m2 LV Mass: 174.31 67-162/88-224 g LV Mass Index: 111.03 43-95/49-115 g/m2 LVOT Diam: 2.00 3.0+(-)1.3 cm 2D Systolic Function EF 4C: 57.90 >55% EF 2C: 61.80 >55% EF BiP: 59.80 >55% Mitral Valve MV Pk E: 0.80 MV PK A: 0.76 MV Decel Time: 193.00 E/A: 1.10 E'Lateral: 8.16 E'Medial: 4.90 E/E' Med: 16.30 E/E' Lat: 9.80 PHT: 57.00 MVA PHT: 3.86 Decel [place]: 4.12 Aortic Valve AoV Pk Bari: 1.21 AoV Mn Bari: 0.83 AoV VTI: 0.25 AoV Pk Grad: 6.00 Aov Mn Grad: 3.00 STEPHENIE Cont.VTI: 2.51 AI Pk Bari: 4.37 AI [place]: 2.36 LVOT LVOT Pk Bari: 0.86 LVOT Mn Bari: 0.64 LVOT VTI: 0.20 LVOT Pk Grad: 3.00 LVOT Mn Grad: 2.00 LVOT Diam: 2.00 LVOT Area: 3.14 Diastolic Function MV Pk E: 0.80 MV Pk A: 0.76 E/A: 1.10 E'Medial: 4.90 E/E' Med: 16.30 E' Laterial: 8.16 E/E' Lat: 9.80 Right Ventricle TAPSE (mm): 15.00 TVS' Bari: 9.03 Tricuspid Valve TR Pk Bari: 2.01 TR Pk Grad: 16.00 RA Press: 3.00 RVSP: 19.00 Great Vessels Aorta Sinus of Valsalva: 3.70 2.0-3.5 cm Ao Asc: 3.80 2.1-3.4 cm Ao Arch: 3.50 Pulmonary Valve PV Pk Bari: 0.62 Peak PV Grad: 2.00 Updated in Other Vendor System with Status of Final Dale Francois MD electronically signed on 05/27/2024 3:34:53 PM with status of Final
== END ==
LOC: HO.CARD 09:07
PROVIDERS: Visit Provider Nurse Practitioner Family
DX: I35.1 Nonrheumatic aortic (valve) insufficiency (principal); I51.89 Other ill-defined heart diseases
CPT/HCPCS: 93306; 93356

== ENCOUNTER → 2024-05-27 09:12 | Outpatient (BNV) | payer OTHER, SELFPAY | PROVIDERS: Visit Provider Internal Medicine Cardiovascular Disease | DX: I35.1 Nonrheumatic aortic (valve) insufficiency (principal); I36.1 Nonrheumatic tricuspid (valve) insufficiency | CPT/HCPCS: 93306; 93356 ==

== ENCOUNTER 2024-12-26 09:52 | Outpatient (AMB) | payer OTHER, SELFPAY ==
[2024-12-26 10:06] VITALS: BP 90/60; PULSE 70; BMI 22.5
--- NOTE | 2024-12-26 10:06 | A.OFFVIS_ITS ---
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: No Allergies Sulfa (Sulfonamide Antibiotics) Allergy (Severe, Verified 12/26/24 10:09) Hives Medication List - Last Reconciled 12/26/24 by Melodie Goldberg, SALLY-C amiloride 5 mg PO DAILY euesdvqfbn-ayifbxmx-uiiusplpfy 160-9-4.8 mcg/actuation (Breztri Aerosphere) 2 inhalations inhalation Q12H bupropion HCl XL mg PO DAILY seeycjohjs-tvefankmkxdiy-sdbb 50-325-40 mg 1 tab PO NEEDED PRN esomeprazole magnesium 40 mg PO DAILY famotidine 40 mg (2 x 20 mg) PO DAILY felodipine ER 5 mg PO DAILY ipratropium-albuterol 0.5 mg-3 mg(2.5 mg base)/3 mL 3 mL inhalation Q4-6H PRN 30 days losartan 50 mg PO DAILY nicotine (polacrilex) mg PO rosuvastatin 20 mg PO BEDTIME timolol maleate 0.5% 1 drp ophthalmic (eye) BID venlafaxine ER 300 mg PO DAILY HPI HPI f/u after echo: Details: Vaishali is a 69-year-old female with past medical history of smoking, COPD, chest discomfort with cardiac catheterization showing no significant coronary artery disease, vdla-yd-btoewlgi aortic regurgitation who presents for follow-up. Her last prior visit was 04/21/2024. Today she reports that she has ongoing chronic issues with shortness of breath. Overall this is unchanged from prior reports. She does have an intermittent cough. She has been getting some random pains in her chest and shoulders and wonders if this is her heart. She denies PND, orthopnea or edema. No heart palpitations, lightheadedness, presyncope, syncope, falls. Her activity is limited by her pulmonary condition. She is following closely with pulmonology. [facility] Medical History Abdominal pain COPD (chronic obstructive pulmonary disease) Heartburn Surgical History H/O colonoscopy History of esophagogastroduodenoscopy (EGD) History of cardiac catheterization History of foot surgery History of hysterectomy Family History Mother Glaucoma Diabetes Lung cancer Father Diabetes CHF (congestive heart failure) Prostate cancer Heart valve disease Social History Household Members: Friend(s) Alcohol intake: current Alcohol intake frequency: a few times a week Patient Tobacco Use Status: Current everyday Tobacco user Tobacco use type: Cigarette Cigarettes Per Day: 15 Years Smoked: 40 Second Hand Smoke Exposure: No Current occupational status: disabled Review of Systems Const All systems reviewed & are unremarkable except as noted in HPI and below ENT Denies dizziness Card Reports chest pain, Denies chest pain at rest, Denies chest pain with activity, Denies rapid heart rate, Denies pedal edema, Denies edema, Denies leg edema, Denies lightheadedness, Denies palpitations, Reports dyspnea, Reports dyspnea on exertion and Denies orthopnea Resp Reports cough, Reports dyspnea and Reports dyspnea on exertion GI Denies hematochezia and Denies change in stool character Musc Denies abnormal gait, Denies limited range of motion, Denies muscle cramps, Denies muscle weakness, Denies numbness, Denies radiating pain into limb, Denies stiffness and Denies tingling Neuro Denies abnormal gait, Denies dizziness, Denies numbness and Denies tingling Endo Denies palpitations Physical Exam Vital Signs: Last Vital Signs Pulse 70 12/26/24 10:06 BP 90/60 12/26/24 10:06 BMI result Body Mass Index 22.5 Const General: cooperative, healthy appearing, comfortable and no acute distress Orientation/consciousness: patient oriented x3 Neck Neck: Yes normal visual inspection and Yes no JVD Resp Effort & Inspection: normal respiratory effort Auscultation: clear to auscultation bilaterally, no rales, no rhonchi and no wheezes Cardio Rate: regular rate Rhythm: regular rhythm Heart sounds: S1 normal heart sound present, S2 normal heart sound present, no murmurs and no rubs Neuro General: patient oriented x3 Extrem General: Yes normal to inspection and No no pedal edema Psych Appearance: grossly normal Mental Status: mental status grossly normal Speech and movement: Normal speech and movement present Assessment & Plan Assessment & Plan (1) Chest discomfort: Comment: Coronary artery disease was ruled out with cardiac catheterization. Filling pressures were normal at rest. Code(s): R07.89 - Other chest pain Category: Medical Plan: Random pains in her chest and shoulders, not clearly brought on by exertion. Prior cardiac catheterization, 12/27/2020 showed no significant CAD. Echocardiogram from 05/27/2024 shows normal EF and no regional wall motion abnormality. Offered reassurance that her chest discomfort is noncardiac. Signs and symptoms of angina reviewed with her. Emergency care if ever needed for concerning symptoms. Cardiology follow-up 1 year, sooner if needed (2) Dyspnea on exertion: Code(s): R06.00 - Dyspnea, unspecified Category: Medical Plan: Symptom of shortness of breath with activity. She previously had a stress test which led to a cardiac catheterization showing no significant coronary artery disease. Her last echocardiogram was done 05/27/2024 showing EF 55-60% aortic regurgitation, grade 1 diastolic dysfunction. Her shortness of breath is most likely related to her COPD. She does follow with pulmonology. No clear cardiac cause for her shortness of breath. (3) COPD (chronic obstructive pulmonary disease): Code(s): J44.9 - Chronic obstructive pulmonary disease, unspecified Category: Medical Plan: As above (4) Aortic regurgitation: Code(s): I35.1 - Nonrheumatic aortic (valve) insufficiency Category: Medical Plan: Jwjc-nw-sbyuplea on 2022 echo. Mild AR on last echo. Plan Time spent on chart review, documentation, interview and assessment Coding Level of Care Code Est Pt Level 4 (12709) Complex EM visit Add On G2211 Diagnoses Chest discomfort R07.89 Dyspnea on exertion R06.00 COPD (chronic obstructive pulmonary disease) J44.9 Aortic regurgitation I35.1 Time Spent (min) 30
--- OUTSIDE RECORDS SUMMARY | 2024-12-26 14:23 | XMS_ITS ---
Author Organization [facility] Address [address] [place] [address] Care Team Providers Care Terminal Clerk Name Role Phone Augustus Jimenez Primary Care Provider Toñito John Unavailable Unavailable Encounters Encounter Location Date Provider Diagnosis [facility] [address] [place] [address] 10/13/2023 Augusuts Jimenez Plan Of Treatment No Information Progress Notes * Makenzie LUCIANOaDOB:1955 (69 yo F)Acc No.[id number]:10/13/2023 Progress Note Patient:?Vaishali LUCIANO Provider:?Augustus Jimenez MD?Resourc e:Nicci Gee :1955???Age:67 Y???Sex:Female D ate:10/13/2023 Address:[address] [place], [place] [id number] Subjective: * Chief Complaints: * ??? * Medical History:? Objective: * Vitals:? Assessment: Plan: * Treatment: * Billing Information: * Visit Code:? * Procedure Codes:? * Electronic [place], [id number] on 12/26/2024 at 02:23 PM EST Sign off status: Pending * Provider:?Augustus Jimenez MD Date:?09/30 Generated for Elia ng/Faingridg/eTransmitting on:?12/26/2024 02:23 PM EST
--- OUTSIDE RECORDS SUMMARY | 2024-12-26 14:23 | XMS_ITS ---
Author Organization [facility] Address [address] [place] [address] Care Team Providers Care Sweet Dough Mixer Name Role Phone Augustus Jimenez Primary Care Provider Toñito John Unavailable Unavailable Encounters Encounter Location Date Provider Diagnosis [facility] [address] [place] [address] 11/12/2023 Augustus Jimenez Plan Of Treatment No Information Progress Notes * Makenzie EVANSaDOB:1955 (69 yo F)Acc No.[id number]:11/12/2023 Progress Notes Patient:?Vaishali EVANS Provider:?Augustus Jimenez MD :1955???Age:67 Y???Sex:Female D ate:11/12/2023 Address:[address] [place], [place] [id number] Subjective: * Chief Complaints: * ??? * Medical History:? Objective: * Vitals:? Assessment: Plan: * Treatment: * Billing Information: * Visit Code:? * Procedure Codes:? * Electronic [place], [id number] on 12/26/2024 at 02:23 PM EST Sign off status: Pending * Provider:?Augustus Jimenez MD Date:?10/30 Generated for Printi ng/Faingridg/eTransmitting on:?12/26/2024 02:23 PM EST
--- OUTSIDE RECORDS SUMMARY | 2024-12-26 14:23 | XMS_ITS | Patient Health Record ---
Author Organization [facility] Address [address] [place] [id number] Care Team Providers Care Stitcher Around Name Role Phone Tony Augustus Primary Care Provider Toñito John Unavailable Unavailable Allergies Allergen (clinical drug ingredient) Drug/Non Drug Allergy documented on EMR Reaction Allergy Type Onset Date Status Substance with sulfonamide structure and antibacterial mechanism of action (substance) Sulfa Antibiotics House-Ted syndrome Drug Allergy Active Reason For Referral No Information Medications Medication SIG (Take, Route, Frequency, Duration) Notes Start Date End Date Status Rizatriptan Benzoate 5 MG Oral for 30 Days Active Azithromycin 250 MG TAKE 2 TABLETS BY MOUTH TODAY, THEN TAKE 1 TABLET DAILY FOR 4 DAYS Oral for 5 Days Not-Taking Flunisolide 25 MCG/ACT (0.025%) INSERT 2 PUFFS,ON BOTH NARES 2 TIMES A DAY. Nasal for 30 Days Active Ipratropium-Albuterol 0.5-2.5 (3) MG/3ML Inhalation for 15 Days Active metroNIDAZOLE 500 MG TAKE 1 TABLET BY [facility] EVERY 12 HOURS FOR 7 DAYS.DO NOT DRINK ALCOHOL Oral for 7 Days Not-Taking predniSONE 20 MG Oral for 5 Days Not-Taking Pantoprazole Sodium 40 MG Oral for 28 Days Not-Taking Famotidine 40 MG Oral for 30 Days Active Breztri Aerosphere 160-9-4.8 MCG/ACT INHALE 2 PUFFS BY MOUTH EVERY 12 HOURS, RINSE MOUTH AND THROAT AFTER USE J45.909 Inhalation for 30 Days Active Cyclobenzaprine HCl 5 MG TAKE 1 TABLET B Y MOUTH AT BEDTIME Oral for 62 Days Active Timolol Maleate 0.5 % Ophthalmic for 30 Days Active Venlafaxine HCl ER 150 MG 1 capsule with food Oral qam for 30 days Active aMILoride HCl 5 MG Oral for 90 Days Active Felodipine ER 5 MG Oral for 90 Days Active Nicotine 14 MG/24HR APPLY 1 PATCH ONTO T HE SKIN ONCE DAILY Transdermal for 56 Days Active Ventolin HFA 108 (90 Base) MCG/ACT INHALE 2 PUFFS EVERY 6 HOURS, FOR 30 DAYS, NEEDED FOR WHEEZING AND SHORTNESS OF BREATH. Inhalation for 16 Days Active Fluconazole 150 MG Oral for 1 Days Not-Taking Rosuvastatin Calcium 20 MG TAKE 1 TABLET BY MOUTH EVERY DAY Oral for 90 Days Active valACYclovir HCl 1 GM TAKE 1 TABLET BY M OUTH TWICE A DAY FOR 10 DAYS Oral for 10 Days Not-Taking Metoprolol Tartrate 100 MG Oral for 30 Days Not-Taking buPROPion HCl ER (SR) 150 MG Oral for 28 Days Active Esomeprazole Magnesium 40 MG TAKE 1 CAPSULE BY MOUTH EVERY DAY Oral for 90 Days Active Cetirizine HCl 10 MG Oral for 90 Days Active azaTHIOprine 50 MG TAKE 1 TABLET BY PHYLICIA TH TWICE A DAY Oral for 30 Days Active Losartan Potassium 50 MG TAKE 1 TABLET B Y MOUTH EVERY DAY Oral for 90 Days Active Social History Tobacco Use: Social History Observation Description Date Details (start date - stop date) Current Smoker NA - NA Household Question Answer Notes Marital status: lives w/ mily perry, her fiance, her son. no pets Number of children in household: 1 Level of education: not finished college Tobacco Use/Smoking Question Answer Notes Tobacco use: current every day smoker Additional Findings: Tobacco User Light cigarett e smoker ((1-9 cigs/day) Plan Of Treatment No Information Insurance Providers Payer Name Payer Address Payer Phone Subscriber Number Group Number Insured Name Patient Relationship to Insured Coverage Start Date Coverage End Date [facility] [address] [address] [place], [place] [id number] Vaishali Evans Self - patient is the insured Medical (General) History Medical History History ICD Code COPD-emphysema HTN scleroderma osteoporosis cervicalgia AVR Gaffney's esophagus Takasubo cardiomyopathy MDD RIGOBERTO/ PAD Surgical History Surgery Date(Month/Year) rectal fistula 1977 ESAU/BSO endometriosus 1983 PTCA no stents 2009 Takasubo cardiomyopathy 2014 Hospitalization History Reason Date(Month/Year) Cardiomyopathy 2014 [facility] 2010
--- OUTSIDE RECORDS SUMMARY | 2024-12-26 14:23 | XMS_ITS ---
Author Organization [facility] Address [address] [place] [address] Care Team Providers Care Wool Tamper Name Role Phone Augustus Jimenez Primary Care Provider Toñito John Unavailable Unavailable REASON FOR VISIT Cancel appointment Encounters Encounter Location Date Provider Diagnosis [facility] [address] [place] [address] 10/09/2023 Augustus Jimenez Plan Of Treatment No Information Progress Notes * Henry EVANSB:1955 (67 yo F)Acc No.[id number]:10/09/2023 Patient:?ANKITA Vaishali :1955???Age:67 Y???Sex:Female Address:[address] [place] [id number] * true * Date:? Generated for Davidi don/Trisha/eTransmitting on:?12/26/2024 02:23 PM EST
== END 2024-12-26 10:52 | disposition home or self-care (01) ==
PROVIDERS: PCP Physician Assistant Medical; Visit Provider Nurse Practitioner Family
DX: R07.89 Other chest pain (principal); R06.00 Dyspnea, unspecified; J44.9 Chronic obstructive pulmonary disease, unspecified; I35.1 Nonrheumatic aortic (valve) insufficiency
CPT/HCPCS: 99214; G2211

== ENCOUNTER → 2024-12-26 09:52 | Outpatient (BNVA) | payer OTHER, SELFPAY | PROVIDERS: Visit Provider Nurse Practitioner Family | DX: I35.1 Nonrheumatic aortic (valve) insufficiency (principal); J44.9 Chronic obstructive pulmonary disease, unspecified; R07.89 Other chest pain; R06.00 Dyspnea, unspecified; Z87.891 Personal history of nicotine dependence | CPT/HCPCS: 99212 ==

== ENCOUNTER 2025-03-16 07:22 | Outpatient (AMB) | payer OTHER, SELFPAY ==
--- OUTSIDE RECORDS SUMMARY | 2025-03-16 07:25 | XMS_ITS ---
Author Organization [facility] Address [address] [place] [address] Care Team Providers Care Risk And Compliance Analytics Director Name Role Phone Augustus Jimenez Primary Care Provider [phone] Toñito John Unavailable Unavailable Encounters Encounter Location Date Provider Diagnosis [facility] [address] [place] [address] 10/13/2023 Augustus Jimenez Plan Of Treatment No Information Progress Notes * Makenzie LUCIANOaDOB:1955 (69 yo F)Acc No.[id number]:10/13/2023 Progress Note Patient:?Vaishali LUCIANO Provider:?Augustus Jimenez MD?Resourc e:Nicci Gee :1955???Age:67 Y???Sex:Female D ate:10/13/2023 Address:[address] [place], [place] [id number] Subjective: * Chief Complaints: * ??? * Medical History:? Objective: * Vitals:? Assessment: Plan: * Treatment: * Billing Information: * Visit Code:? * Procedure Codes:? * Electronic [place], [id number] on 03/16/2025 at 07:25 AM EDT Sign off status: Pending * Provider:?Augustus Jimenez MD Date:?09/30 Generated for Printi ng/Faxing/eTransmitting on:?03/16/2025 07:25 AM EDT
--- OUTSIDE RECORDS SUMMARY | 2025-03-16 07:25 | XMS_ITS | Patient Health Record ---
Author Organization [facility] Address [address] [place] [address] Care Team Providers Care Net Software Developer Name Role Phone Tony Augustus Primary Care [...] metroNIDAZOLE 500 MG TAKE 1 TABLET BY [facility] EVERY 12 HOURS FOR 7 [...] Insured Coverage Start Date Coverage End Date [facility] [address] [address] [place], [place] [id number] Vaishali Evans Self - patient is the insured Medical (General) History Medical History History ICD Code COPD-emphysema HTN scleroderma osteoporosis cervicalgia AVR Gaffney's esophagus Takasubo cardiomyopathy MDD RIGOBERTO/ PAD Surgical History Surgery Date(Month/Year) rectal fistula 1977 ESAU/BSO endometriosus 1983 PTCA no stents 2009 Takasubo cardiomyopathy 2014 Hospitalization History Reason Date(Month/Year) Cardiomyopathy 2014 [facility] 2010
--- OUTSIDE RECORDS SUMMARY | 2025-03-16 07:25 | XMS_ITS ---
Author Organization [facility] Address [address] [place] [address] Care Team Providers Care Camp Head Counselor Name Role Phone Augustus Jimenez Primary Care Provider Toñito John Unavailable Unavailable Encounters Encounter Location Date Provider Diagnosis [facility] [address] [place] [address] 11/12/2023 Augustus Jimenez Plan Of Treatment No Information Progress Notes * Makenzie VEANSaDOB:1955 (69 yo F)Acc No.[id number]:11/12/2023 Progress Notes Patient:?Vaishali EVANS Provider:?Augustus Jimenez MD :1955???Age:67 Y???Sex:Female D ate:11/12/2023 Address:[address] [place], [place] [id number] Subjective: * Chief Complaints: * ??? * Medical History:? Objective: * Vitals:? Assessment: Plan: * Treatment: * Billing Information: * Visit Code:? * Procedure Codes:? * [place], [id number] on 03/16/2025 at 07:25 AM EDT Sign off status: Pending * Provider:?Augustus Jimenez MD Date:?10/30 Generated for Printi ng/Faxing/eTransmitting on:?03/16/2025 07:25 AM EDT
--- OUTSIDE RECORDS SUMMARY | 2025-03-16 07:25 | XMS_ITS | Clinical Summary ---
Author Organization [facility] Address [address] [place] [address] Phone Care Team Providers Care Physicist Solid Earth Name Role Phone Paco Cooley MD Primary Care Provider [phone] Allergies Active Allergy Reactions Criticality Noted Date Comments Nsaids (Non-Steroidal Anti-I nflammatory Drug) 02/14/2022 Other 02/14/2022 Shrimp 02/14/2022 Sulfamethoxazole-Trimethoprim 2021 Medications azaTHIOprine (IMURAN) 50 mg tablet Take 1 Tablet by mouth daily. Active omeprazole (PriLOSEC) [address] capsule Take 1 capsule (20 mg total) by mouth 1 (one) time each day. Active ammonium lactate (LAC-HYDRIN) 12 % lotion Apply to soles of feet daily. At night wear socks to bed 2 Active ciclopirox (PENLAC) 8 % solution Apply daily to nails clean medication residue off of nail plate every 3 days with rubbing alcohol 2 Active butalbitaL-acet aminophen 50-325 mg tablet Take 1 tablet by mouth every 4 (four) hours. Active inhalational spacing device inhaler by Does not apply route. Active albuterol sulfate (ProAir RespiClick) 90 mcg/actuation aerosol powdr breath activated Inhale into the lungs. Active aMILoride (MIDAMOR) 5 mg tablet Take 1 tablet (5 mg total) by mouth 1 (one) time each day. Active denosumab (Prolia) 60 mg/mL syringe syringe Inject into the skin. Active felodipine (PLENDIL) 5 mg 24 hr tablet Take 1 tablet (5 mg total) by mouth 1 (one) time each day. Active lisinopriL (PRINIVIL,ZESTR IL) 20 mg tablet Take 20 mg by mouth daily. Active rosuvastatin (CRESTOR) 20 mg tablet Take 20 mg by mouth daily. Active venlafaxine XR (EFFEXOR-XR) 150 mg 24 hr capsule Take 150 mg by mouth daily. Active Active Problems Problem Noted Date Diagnosed Date Pulmonary nodule 10/05/2023 Overview (01/31/2025): Last Assessment & Plan: 67-year-old woman current smoker with a 7 mm nodule in the left lower lobe that is slightly more full than previous imaging with no PET avidity in the nodule. She does scleroderma and some other significant risk factors. I had a long discussion with the patient and her son and daughter about the findings on the CAT scan and PET scan. I also explained how PET scans work and why we do them. We talked about pulmonary nodules in general and how their size, shape, and growth over time affect her level of suspicion for malignancy. Given its small size and general appearance I do have a moderate to low suspicion for malignancy. 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 Options discussed were continued observation versus needle biopsy versus surgery. After lengthy discussion she initially wanted just operated on her and then decided she wanted a needle biopsy and finally after further discussion between me and her family she opted for continued observation and in the interim she will try to stop smoking completely as she is already cut down. Plan then will be for 3-month follow-up screening CT and a visit with me after that. All questions were answered. Aortic regurgitation 02/14/2022 CAD (coronary artery disease) 02/14/2022 Cervical neuritis 02/14/2022 Cervicalgia 02/14/2022 COPD without exacerbation (CMS/HCC V24, CMS/HCC V28) 02/14/2022 Depression 02/14/2022 RGIOBERTO (generalized anxiety disorder) 02/14/2022 Hyperlipidemia 02/14/2022 Hypertension 02/14/2022 Migraine 02/14/2022 Osteoporosis 02/14/2022 Scleroderma (CMS/HCC V24, CMS/HCC V28) Thyroid nodule 02/14/2022 Encounters Date Type Department Care Team Description 02/07/2025 Telephone Lung Screening Program - [address] [place] [address] Mariia Rudolph [place] Appointment (1st Notifications) from Last 3 Months Surgical History Surgery Date Site/Laterality Comments OTHER SURGICAL HISTORY N/A PROCEDURE: DE TOTAL ABDOMINAL HYSTERECT W/WO RMVL TUBE OVARY Medical History Medical History Date Comments Aortic regurgitation 02/14/2022 DX:Aortic r egurgitation CAD (coronary artery disease) 02/14/2022 DX :CAD (coronary artery disease) Cervical neuritis 02/14/2022 DX:Cervical ne uritis Cervicalgia 02/14/2022 DX:Cervicalgia COPD without exacerbation ([place]/HCC V24, [facility] V28) 02/14/2022 DX:COPD without exacerbation (HCC) RIGOBERTO (generalized anxiety disorder) 02/14/2022 DX:RIGOBERTO (generalized anxiety disorder) Hypertension 02/14/2022 DX:Hypertension Migraine 02/14/2022 DX:Migraine Hyperlipidemia 02/14/2022 DX:Hyperlipidemi a Depression 02/14/2022 DX:Depression Osteoporosis 02/14/2022 DX:Osteoporosis Scleroderma (CMS/HCC V24, CMS/HCC V28) DX:Scleroderma ([facility]) Glaucoma DX:Glaucoma GERD (gastroesophageal reflux disease) DX:GERD (gastroesophageal reflux disease) Mild intermittent asthma, uncomplicated DX:Mild intermittent asthma, uncomplicated History of heart attack DX:Histo ry of heart attack Osteoarthritis DX:Osteoarthriti s Family History Medical History Relation Name Comments Diabetes Father Hyperlipidemia Father Hypertension Father Diabetes Mother Hyperlipidemia Mother Hypertension Mother Lung cancer Mother Breast cancer Mother's side 1 Niece Breast cancer Mother's side 2 Niece Relation Name Status Comments Father Mother Mother's side 1 Niece Alive Mother's side 2 Niece Alive Social History Tobacco Use Types Packs/Day Years Used Date Smoking Tobacco: Some Days Cigarettes 0.5 51.3 Started: 11/30/1973 Smokeless Tobacco: Never Alcohol Use Standard Drinks/Week Comments Yes 0 (1 standard drink = 0.6 oz pur e alcohol) Comments Unknown Sex and Gender Information Value Date Recorded Sex Assigned at Female 03/02/2025 1:15 PM EDT Legal Sex Female 10:52 PM EST Gender Identity Female 03/02/2025 1:15 PM EDT Sexual Orientation Straight 03/02/2025 1: 15 PM EDT Obstetrics History Last Filed Vital Signs Vital Sign Reading Time Taken Comments Blood Pressure 139/90 10/30/2023 11:23 AM EST Si tting L Arm Pulse 83 10/30/2023 11:23 AM EST Temperature - - Respiratory Rate - - Oxygen Saturation - - Inhaled Oxygen Concentration - - Weight 56.2 kg (124 lb) 10/30/2023 11:23 AM EST Height 160 cm (5' 3 ) 10/30/2023 11:23 AM EST Body Mass Index 21.97 10/30/2023 11:23 AM EST Plan of Treatment Upcoming Encounters Date Type Department Care Team (Late st Contact Info) Description 04/03/2025 1:[address] [facility] Scan [address] [place] [phone] 04/10/2025 3:15 PM EDT Office Visit Thoracic Surgery - [place] [address] [phone] Ernestina Barbosa, SALLY [address] [facility] [address] [place] [address] Health Maintenance Due Date Last Done Comments Breast Cancer Screening 1955 COVID-19 Vaccine (#1) 1962 DTaP,Tdap,and Td Vaccines (1 - Tdap) 1976 Pneumococcal Vaccine: 50+ Ye ars (1 of 2 - PCV) 1976 Zoster Vaccines (1 of 2) 1976 RSV Immunization Adult Patie nts (1 - Risk 60-74 years 1-dose series) 2017 Cholesterol Screening (Lipid Panel) 11/09/2022 Colorectal Cancer Screening: Colonoscopy 11/09/2022 Depression Screening 11/09/2022 Hepatitis C Screening 11/09/2022 Medicare Annual Wellness Visit 11/09/2022 Osteoporosis Screening (Bone Density Screening) 11/09/2022 Social Influencers of Health Screening 11/09/2022 Hypertension/CHF/CAD Annual BMP Blood Test 11/14/2022 Falls Risk Assessment 2022 Influenza Vaccine (Season Ended) 2025 HIB Vaccines Aged Out No longer eligi ble based on patient's age to complete this topic HPV Vaccines Aged Out No longer eligi ble based on patient's age to complete this topic Hepatitis A Vaccines Aged Out No long er eligible based on patient's age to complete this topic Hepatitis B Vaccines Aged Out No long er eligible based on patient's age to complete this topic IPV Vaccines Aged Out No longer eligi ble based on patient's age to complete this topic MMR Vaccines Aged Out No longer eligi ble based on patient's age to complete this topic Meningococcal ACWY Vaccine Aged Out N o longer eligible based on patient's age to complete this topic Meningococcal B Vaccine Aged Out No l onger eligible based on patient's age to complete this topic RSV Immunization Patients Un corin 20 months Aged Out No longer eligible b ased on patient's age to complete this topic Varicella Vaccines Aged Out No longer eligible based on patient's age to complete this topic Insurance [employer] MEDICARE Member Subscriber Plan / Payer (Ef fective 2022-Present) Name:Vaishali Evans Relation to Subscriber:Self Name:Vaishali Evans Payer ID:[id number] Group ID:[id number] Type:Not on file Address: [place] [address] [address] [address] Care Teams Physicist Solid Earth Relationship Specialty Start Date End Date Paco Cooley MD [address] [facility] DEVON Segura PCP - General 05/28/23
--- OUTSIDE RECORDS SUMMARY | 2025-03-16 07:25 | XMS_ITS ---
Author Organization [facility] Address [address] [place] [address] Care Team Providers Care Group Marketing Vp Name Role Phone Augustus Jimenez Primary Care Provider Toñito John Unavailable Unavailable REASON FOR VISIT Cancel appointment Encounters Encounter Location Date Provider Diagnosis [facility] [address] [place] [address] 10/09/2023 Augustus Jimenez Plan Of Treatment No Information Progress Notes * Henry EVANSB:1955 (67 yo F)Acc No.[id number]:10/09/2023 Patient:?Vaishali EVANS :1955???Age:67 Y???Sex:Female Address:[address] [place] [address] * true * Date:? Generated for Printi ng/Cherelleg/eTransmitting on:?03/16/2025 07:25 AM EDT
--- NOTE | 2025-03-16 07:35 | MHC.OFFVIS ---
Vital Signs 03/16/25 07:37 Height 5 ft 1 in Weight 114 lb BMI 21.5 BP 80/54 L Blood Pressure Location Lt brachial Position Sitting Pulse 98 Pulse Oximetry (%) 95 Oxygen Delivery Method Room Air Intake Visit Reasons: GERD/Carmen ele 07/02/2023 Intake Note: Patient complex follow up for GERD./Carmen lee 07/02/2023 last EGD 06/12/[address] Larson. Patient cc: abdominal discomfort with acid reflux, constipation, poor appetite, and always tired. 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: No Accompanied by: Self / Same As Patient Allergies Sulfa (Sulfonamide Antibiotics) Allergy (Severe, Verified 03/16/25 07:33) Hives Medication List - Last Reconciled 03/16/25 by Vani Maldonado CNP amiloride 5 mg PO DAILY zgdcbnffrj-dnzoiefy-bfgwohmpjx 160-9-4.8 mcg/actuation (Breztri Aerosphere) 2 inhalations inhalation Q12H bupropion HCl XL mg PO DAILY afsbdaxmgp-ndzxeizcyvlbt-gbjs 50-325-40 mg 1 tab PO NEEDED PRN diclofenac sodium 1% 2 grams topical QID esomeprazole magnesium 40 mg PO DAILY famotidine 40 mg (2 x 20 mg) PO DAILY felodipine ER 5 mg PO DAILY ipratropium-albuterol 0.5 mg-3 mg(2.5 mg base)/3 mL 3 mL inhalation Q4-6H PRN 30 days losartan 50 mg PO DAILY nicotine 1 patch transdermal Q24H rosuvastatin 20 mg PO BEDTIME timolol maleate 0.5% 1 drp ophthalmic (eye) BID venlafaxine ER 300 mg PO DAILY HPI HPI GERD/Carmen lee 07/02/2023: Details: Patient is a 69-year-old female with PMH of COPD and GERD. Last visit with CLAUDIA Owens 07/02/2023 for heartburn. Pt is here today for follow on GERD. She reports taking famotidine 20 mg in the AM and esmoperazole 40 mg in the evening. States she was unaware the last three scripts of famotidine were for 20 mg and has only been taking one tablet/day. Shares her heaviest meal is at lunch. States pyrosis continues daily with episode of severe pyrosis that wakes her up 3-4x/month. Associated symptoms: regurgitation 1-2x/week, decreased appetite X 3 months. Aggravating factors: red sauces, vinegar Alleviating attempts: avoid known triggers, hydration, Patient denies: systemic symptoms, n/v, unintentional wt loss, dysphasia, bladder changes or melena/hematochezia. She reports BMs every three days, mostly type 1 X one year. Shares prior stool pattern of every other day and more c/w type 3. Associated symptoms: intermittent lower ab pain consumes fruit and vegetables drinks a gallon of water/day walks 30 min/day Social hx: 6 drinks/month-bourbon denies recreational drug use former smoker, cessation 6 months ago PFS Medical History (Updated 03/17/25 @ 10:09 by Vani Maldonado CNP) Weight loss Elevated liver enzymes Constipation Abdominal pain COPD (chronic obstructive pulmonary disease) Heartburn Surgical History H/O colonoscopy History of esophagogastroduodenoscopy (EGD) History of cardiac catheterization History of foot surgery History of hysterectomy Family History Mother Glaucoma Diabetes Lung cancer Father Diabetes CHF (congestive heart failure) Prostate cancer Heart valve disease Social History Household Members: Friend(s) Alcohol intake: current Alcohol intake frequency: a few times a week Patient Tobacco Use Status: Current everyday Tobacco user Tobacco use type: Cigarette Cigarettes Per Day: 15 Years Smoked: 40 Second Hand Smoke Exposure: No Current occupational status: disabled Review of Systems Const Reports as per HPI ENT Reports as per HPI Card Reports as per HPI Resp Reports as per HPI GI Reports as per HPI Reports as per HPI Physical Exam Vital Signs: Last Vital Signs Pulse 98 03/16/25 07:37 BP 80/54 L 03/16/25 07:37 Pulse Ox 95 03/16/25 07:37 Oxygen Delivery Method Room Air 03/16/25 07:37 BMI result Body Mass Index 21.5 Const General: healthy appearing, no acute distress and well developed Nutritional Appearance: well nourished Orientation/consciousness: patient oriented x3 HEENT Head: Yes normal to inspection, Yes normocephalic and Yes atraumatic Face and sinus: Yes normal facial exam Eyes General: appearance normal, both eyes and all related structures Neck Neck: Yes normal visual inspection Resp Effort & Inspection: normal respiratory effort, able to speak in complete sentences, no tracheal deviation and symmetric chest movement Auscultation: clear to auscultation bilaterally Cardio Jugular venous distension: no JVD Rate: regular rate Rhythm: regular rhythm Heart sounds: S1 normal heart sound present, S2 normal heart sound present, no gallops and no murmurs GI Inspection: Yes normal to inspection and No distended Palpation (GI): Soft to palpation, not firm, Tenderness to palpation present (GI) in the epigastrum and No hepatosplenomegaly present Auscultation: normal bowel sounds Neuro General: patient oriented x3 Gait exam (Neuro): Normal gait present Psych Appearance: grossly normal Mental Status: mental status grossly normal Speech and movement: Normal speech and movement present Affect: normal affect Attitude: cooperative Thought process: Normal thought process present Thought content: Normal thought content present Insight: Good insight present (Psych) Judgement: Good judgement present (Psych) Results Reviewed Results Reviewed: Laboratory Tests 08/12/21 12:30 WBC 9.3 RBC 3.88 L Hgb 12.7 Hct 37.8 MCV 97.4 MCH 32.7 MCHC 33.6 RDW 16.0 Plt Count 217 MPV 12.1 Immature Gran % (Auto) 0.5 H Neut % (Auto) 62.3 Lymph % (Auto) 23.1 Valencia % (Auto) 11.6 H Total Bilirubin 0.5 AST 34 H ALT 33 H Alkaline Phosphatase 90 D Total Protein 6.4 L Albumin 3.6 TSH 2.84 Operative Note Date of Service: 06/12/23 Procedure Description: EGD Indication: GERD FLEXIBLE TRANSORAL UPPER GASTROINTESTINAL ENDOSCOPY UPPER ENDOSCOPY Procedure: The patient was placed in the left lateral decubitis position and pre-procedure medications were administered and a bite block was placed. The endoscope was inserted into the mouth and advanced under direct vision to the third part of duodenum. A careful inspection was made as the upper endoscope was withdrawn including a retroflexed examination of the proximal stomach; Findings and interventions are described below. Findings: Larynx:normal Esophagus: GE junction at 36? cm, diaphragm hiatus at 38 cm, consistent with 2 cm sliding hiatal hernia. LA grade A esophagitis noted, bx taken from distal and proximal esophagus in separate jars as well as the GEJ Stomach: Patchy erythema. Biopsies were obtained. Grade 2 flap valve on retroflexed examination of the cardia. Duodenum: normal Intervention: Biopsies as noted above Impression/Findings: erosive esophagitis gastritis hiatal hernia PLAN: smoking cessation change PPI to nexium and see if get better response GERD precautions Pathology 06/12/23 A. Duodenum, biopsy: Chronic inactive duodenitis. B. Stomach, biopsy: Antral-type and oxyntic mucosa with mild chronic inactive inflammation; no Helicobacter organisms seen. C. GE junction, biopsy: - Cardiac-type mucosa with moderate chronic inactive inflammation; no fully-developed intestinal metaplasia seen. - Squamous mucosa within normal limits. D. Esophagus, distal, biopsy: Squamous epithelium within normal limits; no inflammation seen. E. Esophagus, proximal biopsy: Squamous epithelium within normal limits; no inflammation see Date of Service: 05/27/21 Procedure Description: EGD, Colonoscopy FLEXIBLE TRANSORAL UPPER GASTROINTESTINAL ENDOSCOPY AND COLONOSCOPY PROCEDURE NOTE UPPER ENDOSCOPY Consent: Indications for the procedure and potential complications of bleeding, perforation, reaction to medications and missed diagnosis were discussed with the patient and informed consent was obtained. Instrument: Olympus GIF H 190 J mid size upper endoscope Monitoring: Vital signs and clinical assessment, continuous EKG monitoring, Pulse oximetry, Carbon Dioxide monitoring and blood pressure monitoring were done throughout the procedure. Procedure: The patient was placed in the left lateral decubitis position and pre-procedure medications were administered and a bite block was placed. The endoscope was inserted into the mouth and advanced under direct vision to the third part of duodenum. A careful inspection was made as the upper endoscope was withdrawn including a retroflexed examination of the proximal stomach; Findings and interventions are described below. Findings: Larynx:normal Esophagus: GE junction at 38 cm, diaphragm hiatus at 38 cm, LA grade A esophagitis noted, bx taken from distal and proximal esophagus in separate jars Stomach: Scattered erosions and erythema. Biopsies were obtained. Grade 2 flap valve on retroflexed examination of the cardia. Duodenum: bulbar duodenitis, bx taken Intervention: Biopsies as noted above COLONOSCOPY Instrument: Olympus variable stiffness pediatric scope 190L Colonoscopy Monitoring: Vital signs and clinical assessment, continuous EKG monitoring, Pulse oximetry, Carbon Dioxide monitoring and blood pressure monitoring were done throughout the procedure. Colon withdrawal time was 10 minutes. Procedure: The patient was placed in the left lateral decubitis position and pre-procedure medications were administered. After a digital rectal examination of the ano-rectum, the video colonoscope was inserted into the rectum and advanced through the colon to the cecum/TI. The colonoscope was slowly withdrawn in a retrograde panoramic fashion and the colon mucosa was carefully examined including a retroflexed view of the rectum. Findings and interventions are described below. Procedure Difficulty:moderate Findings: Terminal Ileum-normal Random colon bx taken Cecum:normal Ascending Colon: normal Transverse Colon -normal Descending Colon:normal Sigmoid Colon: scattered small diverticula seen Rectum: Retroflexion with small internal hemorrhoids, grade I Anorectum - normal Colon preparation: [place] Bowel Preparation Scale Right colon; 2 Transverse colon: 2 Left colon; 2 Impression and Post Procedure Diagnosis: Endoscopy Findings: esophagitis erosive gastritis duodenitis Colonoscopy Findings: internal hemorrhoids diverticular disease Plan: Await Pathology results Repeat Colonoscopy in 5 years deu to prep in some parts or earlier if clinically indicated High fiber diet leaflet avoid straining at stool, epsom salts and sitz bath, anusol supps or cream consider changing pantoprazole to another PPI, if H pylori pos then treat Pathology Received: 05/27/21 Diagnosis A. Duodenum, biopsy: Chronic inactive duodenitis with regenerative changes. B. Stomach, biopsy: Antral- type and oxyntic mucosa with mild chronic inactive inflammation; no Helicobacter organisms seen. C. Esophagus, distal, biopsy: - Cardiac- type mucosa with moderate chronic active inflammation; no intestinal metaplasia seen. - Small detached fragment of intestinal epithelium. - Squamous mucosa within normal limits. D. Esophagus, proximal, biopsy: Squamous epithelium within normal limits; no inflammation seen. E. Colon, random, biopsy: Colonic mucosa within normal limits. COMMENT: The intestinal epithelium in part C is quite small, but raises the possibility of Gaffney esophagus. A contaminant cannot be entirely ruled out. Assessment & Plan Assessment & Plan (1) Constipation: Code(s): K59.00 - Constipation, unspecified Category: Medical Qualifiers: Constipation type: unspecified constipation type Qualified Code(s): K59.00 - Constipation, unspecified Plan: Present the past year. Last colonoscopy 2020 complete with fair prep-findings of internal hemorrhoids and diverticular disease. We will obtain basic /screening labs. Prescription sent for hydrocortisone ointment to help with hemorrhoid management. Reinforced lifestyle modifications to promote regularity: -higher fiber diet -adequate hydration with water -150 minutes of moderate intensity exercise per week (2) Elevated liver enzymes: Code(s): R74.8 - Abnormal levels of other serum enzymes Category: Medical Plan: Slight elevation at time of 2020 collection. PCP care through [facility], will try to obtain most recent OV note. She is agreeable to repeat fasting + screening labs. (3) Heartburn: Code(s): R12 - Heartburn Category: Medical Plan: Last EGD May 2023 with chronic inactive inflammation, negative for H pylori. Discussed changing time of administration for PPI. Can continue with famotidine in the morning but instructed to take two tablets for a total of 40 mg/day. Advised taking esomeprazole 40 mg at least 30 minutes before largest meal. We will hold on repeat EGD at this time and re-evaluate symptoms at follow-up. Education on GERD prevention-Advised against heavy meals. Encouraged small frequent meals VS large meals, remaining upright after meals x 2-3 hours, avoid spicy foods/caffeine/alcohol/known triggers and tight fitting clothes (4) Abdominal pain: Code(s): R10.9 - Unspecified abdominal pain Category: Medical Qualifiers: Abdominal location: unspecified location Qualified Code(s): R10.9 - Unspecified abdominal pain Plan: Etiology of symptoms is unclear. Do note a 13lb weight loss since March 2024. Questionable secondary to constipation VS GERD. Liver enzymes also elevated. Labs ordered as below. We will also obtain a CT abdomen and pelvis for further evaluation. Plan Follow-up 8 weeks or sooner as needed Time: I spent a total of 60 minutes on the date of encounter which includes: Preparing to see the patient (reviewed previous documentation, test results and medical history) Performing a medically appropriate exam and/or evaluation Ordering medications, tests, and procedures Documenting clinical information in the health record Orders: Orders C Reactive Protein 03/16/25 K59.00 - Constipation, unspecified TSH reflex Free T4 03/16/25 K59.00 - Constipation, unspecified IRON PROFILE 03/16/25 K59.00 - Constipation, unspecified Lipase 03/16/25 R10.9 - Unspecified abdominal pain CT abdomen pelvis w IV con 03/16/25 R10.9 - Unspecified abdominal pain Calprotectin, Fecal 03/16/25 K59.00 - Constipation, unspecified Comprehensive Met. Panel 03/16/25 R74.8 - Abnormal levels of other serum enzymes Complete Blood Count Auto Diff 03/16/25 K59.00 - Constipation, unspecified Ferritin 03/16/25 K59.00 - Constipation, unspecified Hepatitis A,B,C Profile 03/16/25 R74.8 - Abnormal levels of other serum enzymes HIV Ab/Ag 03/16/25 R74.8 - Abnormal levels of other serum enzymes Transglutaminase IgA 03/16/25 R10.9 - Unspecified abdominal pain, R63.4 - Abnormal weight loss Medications: New hydrocortisone 1% Apply sparingly, up to twice daily as needed 1 appl [place] BID PRN 28.4 grams 2RF hemorrhoids Coding Level of Care Code Established Pt Est Pt Level 3 (24505) Patient Type Established Diagnoses Constipation, unspecified constipation type K59.00 Constipation type: unspecified constipation type Elevated liver enzymes R74.8 Heartburn R12 Abdominal pain, unspecified abdominal location R10.9 Abdominal location: unspecified location
[2025-03-16 07:37] VITALS: BP 80/54; PULSE 98; O2SAT 95; BMI 21.5
== END 2025-03-16 08:19 | disposition home or self-care (01) ==
LOC: HO.HGI 07:23
PROVIDERS: PCP Physician Assistant Medical; Visit Provider Nurse Practitioner Family
DX: K59.00 Constipation, unspecified (principal); R74.8 Abnormal levels of other serum enzymes; R12 Heartburn; R10.9 Unspecified abdominal pain
CPT/HCPCS: 99215

== ENCOUNTER → 2025-03-16 07:22 | Outpatient (BNVA) | payer OTHER, SELFPAY | PROVIDERS: PCP Physician Assistant Medical; Visit Provider Nurse Practitioner Family | DX: K21.9 Gastro-esophageal reflux disease without esophagitis (principal); K59.00 Constipation, unspecified; R74.8 Abnormal levels of other serum enzymes; R10.9 Unspecified abdominal pain; R63.4 Abnormal weight loss; Z79.899 Other long term (current) drug therapy | CPT/HCPCS: 99212 ==

== ENCOUNTER 2025-03-23 11:50 | Outpatient (REF) | payer OTHER, SELFPAY ==
[2025-03-23 13:08] LABS: MANUAL DIFF FLAG NO
[2025-03-23 13:16] LABS: Basophils Absolute Auto 0.1 X10*3/uL (0.0-0.2); Basophils Percent Auto 0.8 % (0-2); Eosinophils Absolute Auto 0.2 X10*3/uL (0.0-0.4); Eosinophils Percent Auto 2.1 % (0-4); Hematocrit 45.9 % (37.0-47.0); Hemoglobin 15.8 g/dl (12.0-16.0); Imm Gran Abs Auto 0.04 X10*3/uL (0.00-0.03); Imm Gran Pct Auto 0.5 % (0.0-0.4); Lymphocytes Absolute Auto 1.7 X10*3/uL (1.2-4.9); Lymphocytes Percent Auto 21.2 % (20-40); Mean Corpuscular HGB Conc 34.4 g/dl (31.0-35.0); Mean Corpuscular Hemoglobin 34.3 pg (27.0-33.0); Mean Corpuscular Volume 99.8 fL (80.0-98.0); Mean Platelet Volume 10.7 fL (9.4-12.3); Monocytes Absolute Auto 0.8 X10*3/uL (0.1-1.2); Monocytes Percent Auto 9.4 % (2-11); Neutrophils Absolute Auto 5.3 x10*3/uL (2.0-8.3); Platelet Count 237 X10*3/uL (160-400); Red Cell Distribution Width 14.8 % (11.0-16.0)
[2025-03-23 13:56] LABS: Alanine Aminotransferase 33 U/L (0-31); Albumin Level 4.1 g/dL (3.5-5.0); Alkaline Phosphatase 76 U/L (39-117); Anion Gap 14 (12-20); Aspartate Amino Transferase 35 U/L (5-31); Bilirubin Total 0.4 mg/dL (0.0-1.0); Blood Urea Nitrogen 21 mg/dL (9-16); C Reactive Protein 0.86 mg/dL (< or = 0.50); Calcium 10.1 mg/dL (8.4-10.2); Carbon Dioxide 26 mmol/L (22-29); Chloride 102 mmol/L (96-108); Estimated Glomerular Filt Rate > 60; Glucose Random 94 mg/dL (60-115); Iron 103 mcg/dL (30-160); Lipase 16 U/L (8-78); Percent Iron Saturation 34 % (15-50); Potassium 4.7 mmol/L (3.3-5.1); Sodium 137 mmol/L (135-145); Total Iron Binding Capacity 299 mcg/dL (228-428); Total Protein 7.7 g/dL (6.5-8.0); Unsaturated Iron Binding 196 ug/dL
[2025-03-23 13:57] LABS: HBc Num1 0.12 S/CO (0.00-0.79); HBsAGNum1 0.26 S/CO (0.00-0.99); HIV AB/AG Nonreactive (Nonreactive); HIV Num 1 0.11 S/CO (0.00-0.99); Hepatitis A Antibody IgM 0.12 Index (0-0.79); Hepatitis B Core Antibody Nonreactive (Nonreactive); Hepatitis B Surface Antigen Negative (Negative); ~HepC Num1 0.14 S/CO (0.00-0.79); ~Hepatitis A Antibody IgM Nonreactive (Nonreactive); ~Hepatitis B Surface Antibody NONREACTIVE (Nonreactive); ~Hepatitis C Antibody Nonreactive (Nonreactive)
[2025-03-23 14:01] LABS: Ferritin 75 ng/mL (10-250); TSH reflex Free T4 2.45 uIU/mL (0.32-4.0)
--- OUTSIDE RECORDS SUMMARY | 2025-03-23 14:13 | XMS_ITS ---
Author Organization [facility] Address [address] [place] [address] Care Team Providers Care Equipment Processer Storage Name Role Phone Augustus Jimenez Primary Care Provider [phone] Toñito John Unavailable Unavailable Encounters Encounter Location Date Provider Diagnosis [facility] [address] [place] [address] 11/12/2023 Augustus Jimenez Plan Of Treatment No Information Progress Notes * Makenzie EVANSaDOB:1955 (69 yo F)Acc No.[id number]:11/12/2023 Progress Notes Patient:?Vaishali EVANS Provider:?Augustus Jimenez MD :1955???Age:67 Y???Sex:Female D ate:11/12/2023 Address:[address] [place], [place] [id number] Subjective: * Chief Complaints: * ??? * Medical History:? Objective: * Vitals:? Assessment: Plan: * Treatment: * Billing Information: * Visit Code:? * Procedure Codes:? * [place], [id number] on 03/23/2025 at 02:13 PM EDT Sign off status: Pending * Provider:?Augustus Jimenez MD Date:?10/30 Generated for Printi ng/Faxing/eTransmitting on:?03/23/2025 02:13 PM EDT
--- OUTSIDE RECORDS SUMMARY | 2025-03-23 14:13 | XMS_ITS | Clinical Summary ---
Author Organization [facility] Address [address] [place] [address] Phone Care Team Providers Care Electrotherapist Name Role Phone Paco Cooley MD Primary Care Provider [phone] Allergies Active Allergy Reactions Criticality Noted Date [...] and treatment of lung cancer should this bucket turner what it is. Options discussed were [...] (CMS/HCC V24, CMS/HCC V28) 02/14/2022 Depression 02/14/2022 RIGOBERTO (generalized anxiety disorder) 02/14/2022 Hyperlipidemia 02/14/2022 Hypertension 02/14/2022 Migraine 02/14/2022 Osteoporosis 02/14/2022 Scleroderma (CMS/HCC V24, CMS/HCC V28) Thyroid nodule 02/14/2022 Encounters Date Type Department Care Team Description 02/07/2025 Telephone Lung Screening Program - [address] [place] [address] Mariia Rudolph [place] Appointment (1st Notifications) from Last 3 Months Surgical History Surgery Date Site/Laterality Comments OTHER SURGICAL HISTORY N/A PROCEDURE: AL TOTAL ABDOMINAL HYSTERECT W/WO RMVL TUBE OVARY Medical History Medical History Date Comments Aortic regurgitation 02/14/2022 DX:Aortic r egurgitation CAD (coronary artery disease) 02/14/2022 DX :CAD (coronary artery disease) Cervical neuritis 02/14/2022 DX:Cervical ne uritis Cervicalgia 02/14/2022 DX:Cervicalgia COPD without exacerbation (C ND/HCC V24, [facility] V28) 02/14/2022 DX:COPD without exacerbation (HCC) RIGOBERTO (generalized anxiety disorder) 02/14/2022 DX:RIGOBERTO (generalized anxiety disorder) Hypertension 02/14/2022 DX:Hypertension Migraine 02/14/2022 DX:Migraine Hyperlipidemia 02/14/2022 DX:Hyperlipidemi a Depression 02/14/2022 DX:Depression Osteoporosis 02/14/2022 DX:Osteoporosis Scleroderma (CMS/HCC V24, CMS/HCC V28) DX:Scleroderma ([facility]) Glaucoma DX:Glaucoma GERD (gastroesophageal reflux [...] Info) Description 04/03/2025 1:00 PM EDT Appointment [facility] CT Scan [address] [place] [phone] 04/10/2025 3:15 PM EDT Office Visit Thoracic Surgery - [place] [address] [phone] Ernestina Barbosa, SALLY [facility] [address] [place] [address] Health Maintenance Due Date Last Done Comments [...] ID:[id number] Group ID:[id number] Type:Not on file Address: [place] [address] [address] [address] Care Teams Electrotherapist Relationship Specialty Start Date End Date Paco Cooley MD [address] [facility] DEVON Segura PCP - General 05/28/23
--- OUTSIDE RECORDS SUMMARY | 2025-03-23 14:13 | XMS_ITS ---
Author Organization [facility] Address [address] [place] [address] Care Team Providers Care Computer Network Support Specialist Name Role Phone Augustus Jimenez Primary Care Provider Toñito John Unavailable Unavailable Encounters Encounter Location Date Provider Diagnosis [facility] [address] [place] [address] 10/13/2023 Augustus Jimenez Plan Of Treatment No Information Progress Notes * Makenzie LUCIANOaDOB:1955 (69 yo F)Acc No.[id number]:10/13/2023 Progress Note Patient:?Vaishali LUCIANO Provider:?Augustus Jimenez MD?Resourc e:Nicci Gee :1955???Age:67 Y???Sex:Female D ate:10/13/2023 Address:[address] [place], [place] [id number] Subjective: * Chief Complaints: * ??? * Medical History:? Objective: * Vitals:? Assessment: Plan: * Treatment: * Billing Information: * Visit Code:? * Procedure Codes:? * Electronic signature [place], [id number] on 03/23/2025 at 02:13 PM EDT Sign off status: Pending * Provider:?Augustus Jimenez MD Date:?09/30 Generated for Printi ng/Faxing/eTransmitting on:?03/23/2025 02:13 PM EDT
--- OUTSIDE RECORDS SUMMARY | 2025-03-23 14:13 | XMS_ITS | Patient Health Record ---
Author Organization [facility] Address [address] [place] [address] Care Team Providers Care Self Pay Collector Name Role Phone Tony Augustus Primary Care [...] metroNIDAZOLE 500 MG TAKE 1 TABLET BY [facility] EVERY 12 HOURS FOR 7 DAYS.DO NOT [...] Insured Coverage Start Date Coverage End Date [facility] [address] [address] [place], [place] [id number] Vaishali Evans Self - patient is the insured Medical (General) History Medical History History ICD Code COPD-emphysema HTN scleroderma osteoporosis cervicalgia AVR Gaffney's esophagus Takasubo cardiomyopathy MDD RIGOBERTO/ PAD Surgical History Surgery Date(Month/Year) rectal fistula 1977 ESAU/BSO endometriosus 1983 PTCA no stents 2009 Takasubo cardiomyopathy 2014 Hospitalization History Reason Date(Month/Year) Cardiomyopathy 2014 [facility] 2010
--- OUTSIDE RECORDS SUMMARY | 2025-03-23 14:14 | XMS_ITS ---
Author Organization [facility] Address [address] [place] [address] Care Team Providers Care Transfer Coordinator Name Role Phone Augustus Jimenez Primary Care Provider Toñito John Unavailable Unavailable REASON FOR VISIT Cancel appointment Encounters Encounter Location Date Provider Diagnosis [facility] [address] [place] [address] 10/09/2023 Augustus Jimenez Plan Of Treatment No Information Progress Notes * Henry EVANSB:1955 (67 yo F)Acc No.[id number]:10/09/2023 Patient:?Vaishali EVANS :1955???Age:67 Y???Sex:Female Address:[address] [place] [address] * true * Date:? Generated for Printi ng/Faingridg/eTransmitting on:?03/23/2025 02:13 PM EDT
[2025-03-24 14:59] LABS: Transglutaminase IgA <1.0 U/mL
== END 2025-03-23 11:51 | disposition home or self-care (01) ==
LOC: HO.HMGCLDS 11:50
PROVIDERS: PCP Physician Assistant Medical; Visit Provider Nurse Practitioner Family
DX: K59.00 Constipation, unspecified (principal); R10.9 Unspecified abdominal pain; R74.8 Abnormal levels of other serum enzymes; R63.4 Abnormal weight loss
CPT/HCPCS: 36415; 80053; 82728; 83540; 83690; 84443; 85025; 86140; 86364; 86704; 86706; 86709; 86803; 87340; 87389

== ENCOUNTER 2025-04-10 11:29 | Outpatient (REF) | payer OTHER, SELFPAY ==
--- NOTE | ~2025-04-10 | CT_ITS ---
EXAMINATION: CT ABDOMEN PELVIS WITH IV CONTRAST HISTORY: R10.9 - Unspecified abdominal pain COMPARISON: There are no prior studies for comparison. TECHNIQUE: CT scan of the abdomen and pelvis was performed following administration of 85 mL Omnipaque 350 using standard departmental protocol. Coronal and sagittal reformatted images were generated and reviewed. The patient received oral contrast material. This CT exam was performed with one or more of the following dose reduction techniques: automated exposure control, adjustment of the mA and/or kV according to patient size, use of iterative reconstruction technique. DLP: 234 mGy-cm FINDINGS: LOWER CHEST: The visualized lung bases are clear. There is no pleural effusion. CARDIOVASCULATURE: The heart is normal in size. There is no pericardial effusion. LIVER: The liver is normal in size and contour. There are subcentimeter hypodensities in the liver which likely represent cysts, but are too small to accurately characterize. The hepatic and portal veins are patent. GALLBLADDER / BILE DUCTS: The gallbladder is unremarkable. There is no intra or extrahepatic biliary ductal dilatation. SPLEEN: The spleen is normal in size. No focal splenic lesion is identified. PANCREAS: The pancreas is unremarkable in appearance. ADRENAL GLANDS: Within normal limits. KIDNEYS/RETROPERITONEUM: No renal calculi are identified. There is no hydronephrosis. No renal masses are identified. LYMPH NODES: No abdominal or pelvic lymphadenopathy. VASCULATURE: The abdominal aorta demonstrates atherosclerotic calcification, but is normal in caliber. MESENTERY/PERITONEUM: No free fluid. No masses. There is no free intraperitoneal gas. STOMACH: The stomach is collapsed, limiting evaluation. SMALL BOWEL: The small bowel is normal in caliber. COLON: There is a moderate to large amount of stool throughout the colon. APPENDIX: Normal. URINARY BLADDER/PELVIC ORGANS: The urinary bladder is unremarkable. The prostate is normal in size. BONES / SOFT TISSUES: No suspicious bony or soft tissue abnormalities. CT/CT abdomen pelvis w IV con IMPRESSION: Moderate to large amount of stool throughout the colon. Electronically signed by: Nick Hess MD 04/10/2025 02:14 PM EDT
--- OUTSIDE RECORDS SUMMARY | 2025-04-10 12:18 | XMS_ITS ---
Author Organization [facility] Address [address] [place] [address] Care Team Providers Care Uniform Attendant Name Role Phone Augustus Jimenez Primary Care Provider [phone] Toñito John Unavailable Unavailable Encounters Encounter Location Date Provider Diagnosis [facility] [address] [place] [address] 10/13/2023 Augustus Jimenez Plan Of Treatment No Information Progress Notes * Makenzie LUCIANOaDOB:1955 (69 yo F)Acc No.[id number]:10/13/2023 Progress Note Patient:?Vaishali LUCIANO Provider:?Augustus Jimenez MD?Resourc e:Nicci Gee :1955???Age:67 Y???Sex:Female D ate:10/13/2023 Address:[address] [place], [place] [phone] Subjective: * Chief Complaints: * ??? * Medical History:? Objective: * Vitals:? Assessment: Plan: * Treatment: * Billing Information: * Visit Code:? * Procedure Codes:? * [place], [id number] on 04/10/2025 at 12:17 PM EDT Sign off status: Pending * Provider:?Augustus Jimenez MD Date:?09/30 Generated for Printi ng/Faxing/eTransmitting on:?04/10/2025 12:17 PM EDT
--- OUTSIDE RECORDS SUMMARY | 2025-04-10 12:18 | XMS_ITS ---
Author Organization [facility] Address [address] [place] [address] Care Team Providers Care Director Of Dementia Operations Name Role Phone Augustus Jimenez Primary Care Provider Toñito John Unavailable Unavailable Encounters Encounter Location Date Provider Diagnosis [facility] [address] [place] [address] 11/12/2023 Augustus Jimenez Plan Of Treatment No Information Progress Notes * Makenzie EVANSaDOB:1955 (69 yo F)Acc No.[id number]:11/12/2023 Progress Notes Patient:?Vaishali EVANS Provider:?Augustus Jimenez MD :1955???Age:67 Y???Sex:Female D ate:11/12/2023 Address:[address] [place], [place] [id number] Subjective: * Chief Complaints: * ??? * Medical History:? Objective: * Vitals:? Assessment: Plan: * Treatment: * Billing Information: * Visit Code:? * Procedure Codes:? * Electronic [place], [id number] on 04/10/2025 at 12:18 PM EDT Sign off status: Pending * Provider:?Augustus Jimenez MD Date:?10/30 Generated for Printi ng/Faxing/eTransmitting on:?04/10/2025 12:18 PM EDT
--- OUTSIDE RECORDS SUMMARY | 2025-04-10 12:18 | XMS_ITS | Clinical Summary ---
Author Organization [facility] Address [address] [place] [address] Phone Care Team Providers Care Quarter Inspector Name Role Phone Paco Cooley MD Primary Care Provider [phone] Allergies Active Allergy Reactions Criticality Noted Date [...] and treatment of lung cancer should this return to vendor what it is. Options discussed were continued [...] Osteoporosis 02/14/2022 Scleroderma (CMS/HCC V24, CMS/HCC V28) 2 Thyroid nodule 02/14/2022 Encounters Date Type Department Care Team Description 04/03/2025 5:25 PM EDT - 04/03/2025 11:59 PM EDT Hospital Encounter [facility] CT Scan [address] [place] [id number] Encounter for screening for malignant neoplasm of lung in current smoker with 30 pack year history or greater Discharge Disposition: Home or Self Care 02/07/2025 Telephone Lung Screening Program - [place] [address] [facility] [address] [place] [id number] Mariia Rudolph MA Appointment (1st Notifications) from Last 3 Months Surgical History Surgery Date Site/Laterality Comments OTHER SURGICAL HISTORY N/A PROCEDURE: NM TOTAL ABDOMINAL HYSTERECT W/WO RMVL TUBE OVARY Medical History Medical History Date Comments Aortic regurgitation 02/14/2022 DX:Aortic r egurgitation CAD (coronary artery disease) 02/14/2022 DX :CAD (coronary artery disease) Cervical neuritis 02/14/2022 DX:Cervical ne uritis Cervicalgia 02/14/2022 DX:Cervicalgia COPD without exacerbation (C NH/HCC V24, CMS/HCC V28) 02/14/2022 DX:COPD without exacerbation (HCC) RIGOBERTO (generalized anxiety disorder) 02/14/2022 DX:RIGOBERTO (generalized anxiety disorder) Hypertension 02/14/2022 DX:Hypertension Migraine 02/14/2022 DX:Migraine Hyperlipidemia 02/14/2022 DX:Hyperlipidemi a Depression 02/14/2022 DX:Depression Osteoporosis 02/14/2022 DX:Osteoporosis Scleroderma (CMS/HCC V24, CMS/HCC V28) DX:Scleroderma ([facility]) Glaucoma DX:Glaucoma GERD (gastroesophageal reflux [...] Date Smoking Tobacco: Some Days Cigarettes 0.5 51.4 Started: 11/30/1973 Smokeless Tobacco: Never Alcohol Use [...] 10/30/2023 11:23 AM EST Plan of Treatment Health Maintenance Due Date Last Done Comments Breast Cancer Screening 1955 Cholesterol Screening (Lipid Panel) 11/09/2022 Colorectal Cancer Screening: Colonoscopy 11/09/2022 Depression Screening 11/09/2022 Hepatitis C Screening 11/09/2022 Medicare Annual Wellness Visit 11/09/2022 Osteoporosis Screening (Bone Density Screening) 11/09/2022 Social Influencers of Health Screening 11/09/2022 Falls Risk Assessment 2022 Hypertension/CHF/CAD Annual BMP Blood Test 09/09/2023 09/09/2022 COVID-19 Vaccine ( season) 2024 05/01/2024, 11/07/2023, 04/08/2022, Additional history exists Influenza Vaccine (Season Ended) 2025 09/16/2023, 08/24/2022, 09/20/2021, Additional history exists DTaP,Tdap,and Td Vaccines (4 - Td or Tdap) 12/20/2025 12/20/2015, 07/18/2011, 04/13/2001 Zoster Vaccines Completed 01/13/2021, 08/02, 01/06/2018 Pneumococcal Vaccine: 50+ Years Completed 09/09/2022, 09/17/2016, 11/22/2008 RSV Immunization Adult Patients Completed 11/07/2023 HIB Vaccines Aged Out No longer eligi [...] to complete this topic RSV Immunization Patients Under 20 months Aged Out No longer eligible based on patient's age to complete this topic Varicella Vaccines Aged Out No longer eligible based on patient's age to complete this topic Procedures Procedure Name Priority Date/Time Associated Diagnosis Comments CT CHEST WO CONTRAST Routine 04/03/2025 5:39 PM EDT Encounter for screening for malignant neoplasm of lung in current smoker with 30 pack year history or greater from Last 3 Months Results * CT Chest wo Contrast (04/03/2025 5:39 PM EDT) Anatomical Region Laterality Modality Body Computed Tomogra phy 04/04/2025 5:40 PM EDT Addenda Addendum by Sony Veronica MD on 04/05/2025 1:36 PM EDT PROCEDURE: Chest CT INDICATION: Pulmonary nodules TECHNIQUE: Chest CT without contrast. Multi planar reformats were created and interpreted. The examination was performed utilizing dose reduction techniques. COMPARISON: ??No priors available. FINDINGS: LUNGS/PLEURA: Central airways are patent. ??2 mm left lower lobe nodule. ??4 mm left lower lobe nodule in a region of scarring and ill-defined groundglass opacity. ??Other scattered smaller nodules are seen throughout the lungs. ??No pleural effusion or pneumothorax. MEDIASTINUM: Thyroid gland is normal. ??Esophagus is normal. ??No mediastinal or hilar lymphadenopathy. ??Cardiac chambers are normal in size. ??No pericardial effusion. ??Moderate coronary calcifications. CHEST WALL: No axillary lymphadenopathy or superficial hematoma. UPPER ABDOMEN:Subcentimeter right hepatic cyst. BONES: Bones are normal. IMPRESSION: Emphysema. ??Multiple pulmonary nodules measuring up to 4 mm in the left lower lobe, in a region of surrounding scarring and groundglass opacity. ?? Lung RADS 3-probably benign. ??Recommend chest CT in 6 months to assess change -------- ADDENDUM -------- Dictated By: SONY VERONICA Dictated Date: 04/05/2025 13:35 ET Assigned Physician: SONY VERONICA Reviewed and Electronically Signed By: SONY VERONICA Signed Date: 04/05/2025 13:36 ET Workstation ID: [id number] Transcribed By: Self Edit Transcribed Date: 04/05/2025 13:35 ET Impressions 04/04/2025 6:19 PM EDT Emphysema. ??Multiple pulmonary nodules measuring up to 4 mm in the left lower lobe. ??Recommend chest CT in 6 months to assess change -------- FINAL REPORT -------- Dictated By: SONY VERONICA Dictated Date: 04/04/2025 17:40 ET Assigned Physician: SONY VERONICA Reviewed and Electronically Signed By: SONY VERONICA Signed Date: 04/04/2025 18:19 ET Workstation ID: [id number] Transcribed By: Self Edit Transcribed Date: 04/04/2025 17:40 ET Narrative 04/04/2025 6:19 PM EDT PROCEDURE: Chest CT INDICATION: Pulmonary nodules TECHNIQUE: Chest CT without contrast. Multi planar reformats were created and interpreted. The examination was performed utilizing dose reduction techniques. COMPARISON: ??No priors available. FINDINGS: LUNGS/PLEURA: Central airways are patent. ??2 mm left lower lobe nodule. ??4 mm left lower lobe nodule in a region of scarring and ill-defined groundglass opacity. ??Other scattered smaller nodules are seen throughout the lungs. ??No pleural effusion or pneumothorax. MEDIASTINUM: Thyroid gland is normal. ??Esophagus is normal. ??No mediastinal or hilar lymphadenopathy. ??Cardiac chambers are normal in size. ??No pericardial effusion. ??Moderate coronary calcifications. CHEST WALL: No axillary lymphadenopathy or superficial hematoma. UPPER ABDOMEN:Subcentimeter right hepatic cyst. BONES: Bones are normal. Procedure Note Sony Veronica MD - 04/04/2025 PROCEDURE: Chest CT INDICATION: Pulmonary nodules TECHNIQUE: Chest CT without contrast. Multi planar reformats were createdand interpreted. The examination was performed utilizing dose reductiontechniques. COMPARISON: No priors available. FINDINGS: LUNGS/PLEURA: Central airways are patent. 2 mm left lower lobe nodule. 4mm left lower lobe nodule in a region of scarring and ill-definedgroundglass opacity. Other scattered smaller nodules are seen throughoutthe lungs. No pleural effusion or pneumothorax. MEDIASTINUM: Thyroid gland is normal. Esophagus is normal. Nomediastinal or hilar lymphadenopathy. Cardiac chambers are normal insize. No pericardial effusion. Moderate coronary calcifications. CHEST WALL: No axillary lymphadenopathy or superficial hematoma. UPPER ABDOMEN:Subcentimeter right hepatic cyst. BONES: Bones are normal. IMPRESSION: Emphysema. Multiple pulmonary nodules measuring up to 4 mm in the leftlower lobe. Recommend chest CT in 6 months to assess change -------- FINAL REPORT -------- Dictated By: SONY VERONICA Dictated Date: 04/04/2025 17:40 ET Assigned Physician: SONY VERONICA Reviewed and Electronically Signed By: SONY VERONICA Signed Date: 04/04/2025 18:19 ET Workstation ID: [id number] Transcribed By: Self Edit Transcribed Date: 04/04/2025 17:40 ET Ernestina Barbosa NP IMG CT PROCEDURES Edited Re sult - Final from Last 3 Months Insurance [employer] Member Subscriber Plan / Payer (Ef fective 2022-Present) Name:Vaishali Evans Relation to Subscriber:Self Name:Vaishali Evans Payer ID:[id number] Group ID:[id number] Type:Not on file Address: [address] [facility] [place] [address] Care Teams Quarter Inspector Relationship Specialty Start Date End Date Paco Cooley MD [address] [facility] DEVON Segura PCP - General 05/28/23
--- OUTSIDE RECORDS SUMMARY | 2025-04-10 12:18 | XMS_ITS | Patient Health Record ---
Author Organization [facility] Address [address] [place] [address] Care Team Providers Care Senior Boiler Operator Name Role Phone Tony Augustus Primary Care [...] metroNIDAZOLE 500 MG TAKE 1 TABLET BY [facility] EVERY 12 HOURS FOR 7 DAYS.DO [...] Start Date Coverage End Date [facility] [address] [address] [place], [place] [id number] Vaishali Evans Self - patient is the insured Medical (General) History Medical History History ICD Code COPD-emphysema HTN scleroderma osteoporosis cervicalgia AVR Gaffney's esophagus Takasubo cardiomyopathy MDD RIGOBERTO/ PAD Surgical History Surgery Date(Month/Year) rectal fistula 1977 ESAU/BSO endometriosus 1983 PTCA no stents 2009 Takasubo cardiomyopathy 2014 Hospitalization History Reason Date(Month/Year) Cardiomyopathy 2014 [facility] 2010
[2025-04-10] MEDS: Barium Sulfate Oral (Berry) 450 ML ORAL.SUSP 900 ML PO (13:45)
[2025-04-10] MEDS: iohexoL 350 MG/ML 100 ML INFUS..BTL 85 ML IV (13:46)
== END 2025-04-10 11:30 | disposition home or self-care (01) ==
LOC: HO.CT 11:29
PROVIDERS: PCP Physician Assistant Medical; Visit Provider Nurse Practitioner Family
DX: R10.9 Unspecified abdominal pain (principal); K59.00 Constipation, unspecified
CPT/HCPCS: 74177; 83993; Q9967

== ENCOUNTER → 2025-04-10 11:33 | Outpatient (BNV) | payer OTHER, SELFPAY | PROVIDERS: PCP Physician Assistant Medical; Visit Provider Radiology Diagnostic Radiology | DX: K56.41 Fecal impaction (principal) | CPT/HCPCS: 74177 ==

== ENCOUNTER 2025-05-11 07:49 | Outpatient (AMB) | payer OTHER, SELFPAY ==
--- OUTSIDE RECORDS SUMMARY | 2025-05-11 07:52 | XMS_ITS | Patient Health Record ---
Author Organization [facility] Address [address] [place] [address] Care Team Providers Care Retail Client Solutions Consultant Name Role Phone Tony Augustus Primary Care [...] metroNIDAZOLE 500 MG TAKE 1 TABLET BY [facility] EVERY 12 HOURS FOR 7 [...] Insured Coverage Start Date Coverage End Date [facility] [address] [address] [place], [place] [id number] Vaishali Evans Self - patient is the insured Medical (General) History Medical History History ICD Code COPD-emphysema HTN scleroderma osteoporosis cervicalgia AVR Gaffney's esophagus Takasubo cardiomyopathy MDD RIGOBERTO/ PAD Surgical History Surgery Date(Month/Year) rectal fistula 1977 ESAU/BSO endometriosus 1983 PTCA no stents 2009 Takasubo cardiomyopathy 2014 Hospitalization History Reason Date(Month/Year) Cardiomyopathy 2014 [facility] 2010
--- NOTE | 2025-05-11 08:04 | A.OFFVIS_ITS ---
Vital Signs 05/11/25 08:05 Height 5 ft 1 in Weight 114 lb BMI 21.5 BP 111/58 L Blood Pressure Location Lt brachial Position Sitting Pulse 71 Pulse Oximetry (%) 96 Oxygen Delivery Method Room Air Intake Visit Reasons: 8w constipation/GERD Intake Note: Patient 8 weeks follow up for Abdominal pain, constipation and GERD. Also lab/fecal and abdomen-pelvis CT scan results. Patient cc: constipation, denies any other GI issues for today viist. Woolen Suiting Shrinker Required: No Accompanied by: Self / Same As Patient Allergies Sulfa (Sulfonamide Antibiotics) Allergy (Severe, Verified 05/11/25 08:03) Hives HPI HPI 8w constipation/GERD: Details: Patient is a 69-year-old female with PMH of COPD and GERD. The patient presents for follow-up of chronic constipation, abdominal pain, and ongoing elevated liver enzymes. Constipation has persisted for several months, with a recent CT scan showing moderate to large stool burden throughout the colon. Despite a diet high in fruits and vegetables, adequate hydration, and daily walking, bowel movements remain infrequent and incomplete, with only small amounts passed. Previous daily use of Miralax was ineffective. Abdominal pain is described as frequent, primarily in the lower abdomen, without associated nausea, vomiting, or blood in stool. The patient denies recent weight loss. Acid reflux symptoms have improved with esomeprazole taken with the heaviest meal, but breakthrough symptoms persist, requiring intermittent famotidine. The patient avoids known dietary triggers and eats smaller meals. There is a history of scleroderma, and liver enzymes have been mildly elevated since atleast 2020, with no evidence of hepatitis or other secondary causes. The patient is currently off immunosuppressive therapy due to insurance issues and will follow up with rheumatology. Additional complaints include muscle spasms and neck pain, with a remote history new thyroid nodules. Shares imaging is pending ordered by PCP [facility] Medical History (Updated 05/11/25 @ 10:29 by Vani Maldonado CNP) Acid reflux Weight loss Elevated liver enzymes Constipation Abdominal pain COPD (chronic obstructive pulmonary disease) Heartburn Surgical History H/O colonoscopy History of esophagogastroduodenoscopy (EGD) History of cardiac catheterization History of foot surgery History of hysterectomy Family History Mother Glaucoma Diabetes Lung cancer Father Diabetes CHF (congestive heart failure) Prostate cancer Heart valve disease Social History Household Members: Friend(s) Alcohol intake: current Alcohol intake frequency: a few times a week Patient Tobacco Use Status: Current everyday Tobacco user Tobacco use type: Cigarette Cigarettes Per Day: 15 Years Smoked: 40 Second Hand Smoke Exposure: No Current occupational status: disabled Review of Systems Const Reports as per HPI ENT Reports as per HPI Card Reports as per HPI Resp Reports as per HPI GI Reports as per HPI Reports as per HPI Physical Exam Vital Signs: Last Vital Signs Pulse 71 05/11/25 08:05 BP 111/58 L 05/11/25 08:05 Pulse Ox 96 05/11/25 08:05 Oxygen Delivery Method Room Air 05/11/25 08:05 BMI result Body Mass Index 21.5 Const General: healthy appearing, no acute distress and well developed Nutritional Appearance: well nourished Orientation/consciousness: patient oriented x3 HEENT Head: Yes normal to inspection, Yes normocephalic and Yes atraumatic Face and sinus: Yes normal facial exam Eyes General: appearance normal, both eyes and all related structures Neck Neck: Yes normal visual inspection Resp Effort & Inspection: normal respiratory effort, able to speak in complete sentences, tracheal deviation and symmetric chest movement Neuro General: patient oriented x3 Gait exam (Neuro): Normal gait present Psych Appearance: grossly normal Mental Status: mental status grossly normal Speech and movement: Normal speech and movement present Affect: normal affect Attitude: cooperative Thought process: Normal thought process present Thought content: Normal thought content present Insight: Good insight present (Psych) Judgement: Good judgement present (Psych) Assessment & Plan Assessment & Plan (1) Elevated liver enzymes: Code(s): R74.8 - Abnormal levels of other serum enzymes Category: Medical Plan: Elevation could be explained by known scleroderma. Hepatitis/HIV ruled out, will need Hep B immunity, to reveiw vaccine at next visit. Additional Tests:labs; ab US to further evaluate suspected small hepatic cysts noted on 04/19/25 CT. Medications: Continue current regimen. Lifestyle Modifications: Maintain hydration, avoid alcohol. Follow-Up: Discuss LFTs with rheumatology (2) Constipation: Comment: 05/27/21 Colonoscopy complete with fair prep- diverticulosis, internal hemorrhoids. Recommendations for repeat in 5 year ( 2025) Code(s): K59.00 - Constipation, unspecified Category: Medical Qualifiers: Constipation type: unspecified constipation type Qualified Code(s): K59.00 - Constipation, unspecified Plan: Moderate to large amount of stool throughout the colon noted on 04/19/25 CT. Medications: She is not keen on restarting MiraLax. We will initiate senna 2 tabs PO QHS. Reinforced lifestyle modifications to promote regularity: -higher fiber diet, examples provided -adequate hydration with water -150 minutes of moderate intensity exercise per week (3) Acid reflux: Comment: 05/27/21 EGD- Erosive esophagitis, gastritis, hiatal hernia Code(s): K21.9 - Gastro-esophageal reflux disease without esophagitis Category: Medical Qualifiers: Esophagitis bleeding: without hemorrhage Esophagitis presence: with esophagitis Qualified Code(s): K21.00 - Gastro-esophageal reflux disease with esophagitis, without bleeding Plan: Improvement after administration adjustment. Additional Tests: Will consider Ph testing if no further improvement; endoscopy planned for next year unless symptoms worsen. Medications: Continue esomeprazole daily with largest meal; famotidine PRN for breakthrough symptom Encouraged to take esomeprazole as prescribed, taken at least 30-60 minutes before a meal. Education on GERD prevention : -Advised against heavy meals; encouraged small, frequent meals instead of large ones. - Instructed to remain upright for 2?3 hours after eating. - Advised to avoid late-night meals, spicy foods, caffeine, alcohol, known dietary triggers, and tight-fitting clothing. - Emphasis placed on gradual implementation of lifestyle changes to improve adherence and symptom control. Plan follow up in two months or sooner as neeed Time: I spent a total of 25 minutes on the date of encounter which includes: Preparing to see the patient (reviewed previous documentation, test results and medical history) Performing a medically appropriate exam and/or evaluation Ordering medications, tests, and procedures Documenting clinical information in the health record Orders: Orders Smooth Muscle Antibody Today R74.8 - Abnormal levels of other serum enzymes ROSY Reflex Titer and Pattern Today R74.8 - Abnormal levels of other serum enzymes Gamma Glutamyl Transpeptidase Today R74.8 - Abnormal levels of other serum enzymes Mitochondrial Antibody Today R74.8 - Abnormal levels of other serum enzymes US abdomen limited Today R74.8 - Abnormal levels of other serum enzymes Medications: New sennosides-docusate sodium 8.6-50 mg (Senna Plus) 2 tab-caps (2 x 8.6-50 mg) PO BEDTIME 180 caps 1RF Coding Level of Care Code Established Pt Est Pt Level 3 (70836) Patient Type Established Diagnoses Elevated liver enzymes R74.8 Constipation, unspecified constipation type K59.00 Constipation type: unspecified constipation type Gastroesophageal reflux disease with esophagitis without hemorrhage K21.00 Esophagitis bleeding: without hemorrhage Esophagitis presence: with esophagitis
[2025-05-11 08:05] VITALS: BP 111/58; PULSE 71; O2SAT 96; BMI 21.5
== END 2025-05-11 08:46 | disposition home or self-care (01) ==
LOC: HO.HGI 07:50
PROVIDERS: PCP Physician Assistant Medical; Visit Provider Nurse Practitioner Family
DX: R74.8 Abnormal levels of other serum enzymes (principal); K59.00 Constipation, unspecified; K21.00 Gastro-esophageal reflux disease with esophagitis, without bleeding
CPT/HCPCS: 99213

== ENCOUNTER → 2025-05-11 07:49 | Outpatient (BNVA) | payer OTHER, SELFPAY | PROVIDERS: PCP Physician Assistant Medical; Visit Provider Nurse Practitioner Family | DX: K21.00 Gastro-esophageal reflux disease with esophagitis, without bleeding (principal); R74.8 Abnormal levels of other serum enzymes; K59.00 Constipation, unspecified | CPT/HCPCS: 99212 ==

== ENCOUNTER 2025-06-26 07:34 | Outpatient (REF) | payer OTHER, SELFPAY ==
--- NOTE | ~2025-06-26 | US_ITS ---
EXAMINATION: US ABDOMEN LIMITED CLINICAL INFORMATION: Abnormal levels of liver enzymes.. COMPARISON: Correlated with CT dated April 10, 2025. TECHNIQUE: Real-time ultrasound of the right upper quadrant abdomen using grayscale technique. FINDINGS: Limited examination. Liver measures 13 cm per the technologist. Coarse echotexture. No gross solid or cystic lesions. The hypodense lesions demonstrated on recent CT are not depicted on this exam. Main portal vein is patent with normal hepatopedal flow direction. No intrahepatic biliary ductal dilatation. Gallbladder is fluid-filled contracted. No pericholecystic fluid collection or gallbladder wall thickening. Common bile duct measures 6 mm. No peripancreatic fluid collections. Right kidney measures 10 cm. Normal echotexture. Normal renal cortical thickness. No hydronephrosis. No gross solid or cystic lesion. No free fluid in the hepatorenal fossa. US/US abdomen limited IMPRESSION: No cholelithiasis or gross choledocholithiasis. Probable hepatic steatosis versus hepatocellular disease. Hepatic lesions detected by the ultrasound. If clinically indicated recommend dedicated dynamic enhanced MRI brain liver. No gross ascites. No hydronephrosis, right kidney. Electronically signed by: Pro Briceno MD 06/26/2025 08:39 AM EDT
--- OUTSIDE RECORDS SUMMARY | 2025-06-26 07:35 | XMS_ITS | Encounter Summary ---
Author Organization [facility] Address [address] [place] [address] [place] [phone] Phone Care Team Providers Care Programmer Name Role Phone Toñito John Primary Care Provider [phone] Rajesh Royal MD, DDS Unavailable Encounter Details Date Type Department Care Team (Late st Contact Info) Description 10/07/2022 Procedure Pass [facility] [place] [facility] [address] [place] [id number] Social History Tobacco Use Types Packs/Day Years Used Date Smoking Tobacco: Some Days Smokeless Tobacco: Never Alcohol Use Standard Drinks/Week Comments Yes 4 (1 standard drink = 0.6 oz pur e alcohol) Comments No Sex and Gender Information Value Date Recorded Sex Assigned at Female 07/14/2022 5:35 PM EDT Legal Sex Female 8:33 AM EDT Gender Identity Female 07/14/2022 5:35 PM EDT Sexual Orientation Straight 07/14/2022 5: 35 PM EDT documented as of this encounter Plan of Treatment Not on file documented as of this encounter Visit Diagnoses Not on filedocumented in this encounter Care Teams Programmer Relationship Specialty Start Date End Date Toñito John PA [address] [place] [address] PCP - General Unknown Provider Specialty 06/25/22 Rajesh Royal MD, DDS [address] [place] [address] [email or web address] 04/06/23 documented as of this encounter Additional Source Comments The information contained in this document represents components of the legal health record. It is not the complete legal health record.[facility]
--- OUTSIDE RECORDS SUMMARY | 2025-06-26 07:35 | XMS_ITS | Clinical Summary ---
Author Organization [facility] Address [address] [place] [address] Phone Care Team Providers Care Engine Test Cell Technician Name Role Phone Paco Cooley MD Primary Care Provider [phone] Allergies Active Allergy Reactions Criticality Noted Date [...] Take 150 mg by mouth daily. Active terbinafine (LamISIL) 250 mg tablet Take 1 tablet (250 mg total) by mouth 1 (one) time each day. 30 tablet 2 5 09/12/20 25 Active Active Problems Problem Noted Date Diagnosed [...] and treatment of lung cancer should this vehicle return associate what it is. Options discussed were continued [...] Hypertension 02/14/2022 Migraine 02/14/2022 Osteoporosis 02/14/2022 Scleroderma ([facility] V24, [facility] V28) 2 Thyroid nodule 02/14/2022 Encounters Date Type Department Care Team Description 06/14/2025 9:45 AM EDT Office Visit Orthopedic Surgery [facility] [address] [facility] [address] [place] [phone] Edward Su, TONY Right foot pain (Primary Dx); PAD (peripheral artery disease) ([facility] V24); Arthritis of both feet; Ulcer of toe of left foot, with fat layer exposed ([facility] V24, [facility] V28); Dermatophytosis of nail 04/03/2025 5:25 PM EDT - 04/03/2025 11:59 PM EDT Hospital Encounter [facility] CT Scan [address] [place] [phone] Encounter for screening for malignant neoplasm of lung in current smoker with 30 pack year history or greater Discharge Disposition: Home or Self Care from Last 3 Months Surgical History Surgery Date Site/Laterality Comments OTHER SURGICAL HISTORY N/A PROCEDURE: [place] TOTAL ABDOMINAL HYSTERECT W/WO RMVL TUBE OVARY Medical History Medical History Date Comments Aortic regurgitation 02/14/2022 DX:Aortic r egurgitation CAD (coronary artery disease) 02/14/2022 DX :CAD (coronary artery disease) Cervical neuritis 02/14/2022 DX:Cervical ne uritis Cervicalgia 02/14/2022 DX:Cervicalgia COPD without exacerbation ([facility] [place] V[facility], [facility] V28) 02/14/2022 DX:COPD without exacerbation (HCC) RIGOBERTO (generalized anxiety disorder) 02/14/2022 DX:RIGOBERTO (generalized anxiety disorder) Hypertension 02/14/2022 DX:Hypertension Migraine 02/14/2022 DX:Migraine Hyperlipidemia 02/14/2022 DX:Hyperlipidemi a Depression 02/14/2022 DX:Depression Osteoporosis 02/14/2022 DX:Osteoporosis Scleroderma ([facility] V24, [facility] V28) DX:Scleroderma (HCC) Glaucoma DX:Glaucoma GERD (gastroesophageal reflux disease) DX:GERD [...] Date Smoking Tobacco: Some Days Cigarettes 0.5 51.6 Started: 11/30/1973 Smokeless Tobacco: Never Alcohol Use [...] Care Team (Late st Contact Info) Description 08/17/2025 9:15 AM EDT Ancillary Procedure [facility] [address] [facility] [address] [place] [phone] 09/14/2025 8:30 AM EDT Office Visit Orthopedic Surgery - [place] [address] [phone] Edward Su, DPM [address] [address] Health Maintenance Due Date Last Done Comments Breast Cancer Screening 1955 Cholesterol Screening (Lipid Panel) 11/09/2022 Colorectal Cancer Screening: Colonoscopy 11/09/2022 Hepatitis C Screening 11/09/2022 Medicare Annual Wellness Visit 11/09/2022 Osteoporosis Screening (Bone Density Screening) 11/09/2022 Social Influencers of Health Screening 11/09/2022 Falls Risk Assessment 2022 Depression Screening 11/30/2024 Influenza Vaccine (#1) 2025 , 09/16/2023, 08/24/2022, Additional history exists DTaP,Tdap,and Td Vaccines (4 - Td or Tdap) 12/20/2025 12/20/2015, 07/18/2011, 04/13/2001 Hypertension/CHF/CAD Annual BMP Blood Test 06/22/2026 06/22/2025, 09/09/2022 Zoster Vaccines Completed 01/13/2021, 08/02, 01/06/2018 Pneumococcal Vaccine: 50+ Years Completed 09/09/2022, 09/17/2016, 11/22/2008 RSV Immunization Adult Patients Completed 11/07/2023 COVID-19 Vaccine Completed 04/29/2025, 04/2024, 05/01/2024, Additional history exists HIB Vaccines Aged Out No longer eligi [...] Procedure Name Priority Date/Time Associated Diagnosis Comments COMPREHENSIVE METABOLIC PANEL Routine 06/22/2025 11:50 AM EDT Dermatophytosis of nail XR FOOT 3+ VIEWS RIGHT Routine 10:15 AM EDT Right foot pain CT CHEST WO CONTRAST Routine 04/03/2025 5:39 PM EDT Encounter for screening for malignant neoplasm of lung in current smoker with 30 pack year history or greater from Last 3 Months Results * (ABNORMAL) Comprehensive metabolic panel (06/22/2025 11:50 AM EDT) Sodium 135 133 - 145 mmol/L LAB CHEMISTRY METHOD 06/22/2025 1:37 PM [facility] Potassium 4.7 3.5 - 5.5 mmol/L LAB CHEMISTRY METHOD 06/22/2025 1:37 PM [facility] Chloride 101 96 - 110 mmol/L LAB CHEMISTRY METHOD 06/22/2025 1:37 PM [facility] CO2 28 21 - 32 mmol/L LAB CHEMISTRY METHOD 06/22/2025 1:37 PM [facility] Anion Gap 6 3 - 11 LAB CHEMISTRY METHOD 06/22/2025 1:37 PM [facility] Glucose 96 70 - 100 mg/dL LAB CHEMISTRY METHOD 06/22/2025 1:37 PM [facility] BUN 27(H) 5 - 25 mg/dL LAB CHEMISTRY METHOD 06/22/2025 1:37 PM [facility] Creatinine 0.87 0.50 - 1.10 mg/dL LAB CHEMISTRY METHOD 06/22/2025 1:37 PM [facility] eGFR 73 >=60 mL/min/1. 73m2 LAB CHEMISTRY METHOD 06/22/2025 1:37 PM [facility] Comment:Calculation based on the Chronic Kidney Disease Epidemiology Collaboration (CKD-EPI) equation refit without adjustment for race. BUN/Creatinine Ratio 31.0 LAB CHEMISTRY METHOD 06/22/2025 1:37 PM EDT [facility] Calcium 9.4 8.5 - 10.5 mg/dL LAB CHEMISTRY METHOD 06/22/2025 1:37 PM EDT [facility] AST (SGOT) 24 10 - 42 unit/L LAB CHEMISTRY METHOD 06/22/2025 1:37 PM EDT [facility] ALT (SGPT) 34 10 - 60 unit/L LAB CHEMISTRY METHOD 06/22/2025 1:37 PM EDT [facility] Alkaline Phosphatase 75 42 - 121 unit/L LAB CHEMISTRY METHOD 06/22/2025 1:37 PM EDT [facility] Total Protein 6.9 6.0 - 8.0 g/dL LAB CHEMISTRY METHOD 06/22/2025 1:37 PM EDT [facility] Albumin 3.5 3.2 - 5.0 g/dL LAB CHEMISTRY METHOD 06/22/2025 1:37 PM EDT [facility] Total Bilirubin 0.3 0.0 - 1.4 mg/dL LAB CHEMISTRY METHOD 06/22/2025 1:37 PM EDT [facility] Blood Venous blood specimen / Unknown Venipuncture / Unknown 06/22/2025 11:50 AM EDT 06/22/2025 12:36 PM EDT us Edward Su DPM LAB BLOOD ORDERABLES Final Result [facility] [address] [place] [address], [place] [phone] * XR Foot 3+ Views Right (06/14/2025 10:15 AM EDT) Anatomical Region Laterality Modality Lower Extremities, Foot Right Computed Radiography Narrative 06/14/2025 1:18 PM EDT 3 views right foot weightbearing:No fractures or dislocations. Some contracture at the hallux with some joint space narrowing and degenerative changes. Hardware is in place. Other areas are in rectus alignment us Edward Su DPM IMG XR PROCEDURES Final Res ult * CT Chest wo Contrast (04/03/2025 5:39 PM EDT) Anatomical Region Laterality Modality Body Computed Tomogra phy 04/04/2025 5:40 PM EDT Addenda Addendum by Sony Veronica MD on 04/05/2025 1:36 PM EDT PROCEDURE: Chest CT INDICATION: Pulmonary nodules TECHNIQUE: Chest CT without contrast. Multi planar reformats were created and interpreted. The examination was performed utilizing dose reduction techniques. COMPARISON: No priors available. FINDINGS: LUNGS/PLEURA: Central airways are patent. 2 mm left lower lobe nodule. 4 mm left lower lobe nodule in a region of scarring and ill-defined groundglass opacity. Other scattered smaller nodules are seen throughout the lungs. No pleural effusion or pneumothorax. MEDIASTINUM: Thyroid gland is normal. Esophagus is normal. No mediastinal or hilar lymphadenopathy. Cardiac chambers are normal in size. No pericardial effusion. Moderate coronary calcifications. CHEST WALL: No axillary lymphadenopathy or superficial hematoma. UPPER ABDOMEN:Subcentimeter right hepatic cyst. BONES: Bones are normal. IMPRESSION: Emphysema. Multiple pulmonary nodules measuring up to 4 mm in the left lower lobe, in a region of surrounding scarring and groundglass opacity. Lung RADS 3-probably benign. Recommend chest CT in 6 months to assess change -------- ADDENDUM -------- Dictated By: SONY VERONICA Dictated Date: 04/05/2025 13:35 ET Assigned Physician: SONY VERONICA Reviewed and Electronically Signed By: SONY VERONICA Signed Date: 04/05/2025 13:36 ET Workstation ID: [id number] Transcribed By: Self Edit Transcribed Date: 04/05/2025 13:35 ET Impressions 04/04/2025 6:19 PM EDT Emphysema. Multiple pulmonary nodules measuring up to 4 mm in the left lower lobe. Recommend chest CT in 6 months to assess change -------- FINAL REPORT -------- Dictated By: SONY VERONICA Dictated Date: 04/04/2025 17:40 ET Assigned Physician: SONY VERONICA Reviewed and Electronically Signed By: SONY VERONICA Signed Date: 04/04/2025 18:19 ET Workstation ID: [id number] Transcribed By: Self Edit Transcribed Date: 04/04/2025 17:40 ET Narrative 04/04/2025 6:19 PM EDT PROCEDURE: Chest CT INDICATION: Pulmonary nodules TECHNIQUE: Chest CT without contrast. Multi planar reformats were created and interpreted. The examination was performed utilizing dose reduction techniques. COMPARISON: No priors available. FINDINGS: LUNGS/PLEURA: Central airways are patent. 2 mm left lower lobe nodule. 4 mm left lower lobe nodule in a region of scarring and ill-defined groundglass opacity. Other scattered smaller nodules are seen throughout the lungs. No pleural effusion or pneumothorax. MEDIASTINUM: Thyroid gland is normal. Esophagus is normal. No mediastinal or hilar lymphadenopathy. Cardiac chambers are normal in size. No pericardial effusion. Moderate coronary calcifications. CHEST [...] Signed Date: 04/04/2025 18:19 ET Workstation ID: [id number] Transcribed By: Self Edit Transcribed Date: 04/04/2025 17:40 ET Ernestina Barbosa GRINDING SUPERVISOR IMG CT PROCEDURES Edited Re sult - Final from Last 3 Months Insurance [employer] MEDICARE Member Subscriber Plan / Payer (Ef fective 2022-Present) Name:Vaishali Evans Relation to Subscriber:Self Name:Vaishali Evans Payer ID:[id number] Group ID:[id number] Type:Not on file Address: [place] [address] [address] [phone] Care Teams Engine Test Cell Technician Relationship Specialty Start Date End Date Paco Cooley MD [address] [facility] DEVON Segura PCP - General 05/28/23
--- OUTSIDE RECORDS SUMMARY | 2025-06-26 07:35 | XMS_ITS | Patient Health Record ---
Author Organization [facility] Address [address] [place] [address] Care Team Providers Care Welt Rougher Name Role Phone Tony Augustus Primary Care [...] End Date Status Rizatriptan Benzoate 5 MG Oral; Duration : 30 Days Active Azithromycin 250 MG TAKE 2 TABLETS BY MOUTH TODAY, THEN TAKE 1 TABLET DAILY FOR 4 DAYS Oral; Duration: 5 Days Not-Taking Flunisolide 25 MCG/ACT (0.025%) INSERT 2 PUFFS,ON BOTH NARES 2 TIMES A DAY. Nasal; Duration: 30 Days Active Ipratropium-Albuterol 0.5-2.5 (3) MG/3ML Inhalation; Duration: 15 Days Active metroNIDAZOLE 500 MG TAKE 1 TABLET BY MOUTH EVERY 12 HOURS FOR 7 DAYS.DO NOT DRINK ALCOHOL Oral; Duration: 7 Days Not-Taking predniSONE 20 MG Oral; Duration: 5 Days Not-Taking Pantoprazole Sodium 40 MG Oral; Duration : 28 Days Not-Taking Famotidine 40 MG Oral; Duration: 30 Days Active Breztri Aerosphere 160-9-4.8 MCG/ACT INHALE 2 PUFFS BY MOUTH EVERY 12 HOURS, RINSE MOUTH AND THROAT AFTER USE J45.909 Inhalation; Duration: 30 Days Active Cyclobenzaprine HCl 5 MG TAKE 1 TABLET B Y MOUTH AT BEDTIME Oral; Duration: 62 Days Active Timolol Maleate 0.5 % Ophthalmic; Durati on: 30 Days Active Venlafaxine HCl ER 150 MG 1 capsule with food Oral qam; Duration: 30 days Active aMILoride HCl 5 MG Oral; Duration: 90 Days Active Felodipine ER 5 MG Oral; Duration: 90 Days Active Nicotine 14 MG/24HR APPLY 1 PATCH ONTO THE SKIN ONCE DAILY Transdermal; Duration: 56 Days Active Ventolin HFA 108 (90 Base) MCG/ACT INHALE 2 PUFFS EVERY 6 HOURS, FOR 30 DAYS, NEEDED FOR WHEEZING AND SHORTNESS OF BREATH. Inhalation; Duration: 16 Days Active Fluconazole 150 MG Oral; Duration: 1 Days Not-Taking Rosuvastatin Calcium 20 MG TAKE 1 TABLET BY MOUTH EVERY DAY Oral; Duration: 90 Days Active valACYclovir HCl 1 GM TAKE 1 TABLET BY MOUTH TWICE A DAY FOR 10 DAYS Oral; Duration: 10 Days Not-Taking Metoprolol Tartrate 100 MG Oral; Duratio n: 30 Days Not-Taking buPROPion HCl ER (SR) 150 MG Oral; Duration: 28 Days Active Esomeprazole Magnesium 40 MG TAKE 1 CAPSULE BY MOUTH EVERY DAY Oral; Duration: 90 Days Active Cetirizine HCl 10 MG Oral; Duration: 90 Days Active azaTHIOprine 50 MG TAKE 1 TABLET BY MOUTH TWICE A DAY Oral; Duration: 30 Days Active Losartan Potassium 50 MG TAKE 1 TABLET B Y MOUTH EVERY DAY Oral; Duration: 90 Days Active Social History Tobacco Use: [...] Insured Coverage Start Date Coverage End Date [facility] [address] [address] [place], [place] [phone] [id number] Vaishali Evans Self - patient is the insured Medical (General) History Medical History History ICD Code COPD-emphysema HTN scleroderma osteoporosis cervicalgia AVR Gaffney's esophagus Takasubo cardiomyopathy MDD RIGOBERTO/ PAD Surgical History Surgery Date(Month/Year) rectal fistula 1977 ESAU/BSO endometriosus 1984 PTCA no stents 2010 Takasubo cardiomyopathy 2015 Hospitalization History Reason Date(Month/Year) Cardiomyopathy 2015 [facility] [place] [address]
== END 2025-06-26 07:35 | disposition home or self-care (01) ==
LOC: HO.US 07:34
PROVIDERS: PCP Physician Assistant Medical; Visit Provider Nurse Practitioner Family
DX: R74.8 Abnormal levels of other serum enzymes (principal)
CPT/HCPCS: 76705

== ENCOUNTER → 2025-06-26 07:36 | Outpatient (BNV) | payer OTHER, SELFPAY | PROVIDERS: PCP Physician Assistant Medical; Visit Provider Radiology Diagnostic Radiology | DX: R94.5 Abnormal results of liver function studies (principal) | CPT/HCPCS: 76705 ==

== ENCOUNTER 2025-07-12 08:09 | Outpatient (AMB) | payer OTHER, SELFPAY ==
--- OUTSIDE RECORDS SUMMARY | 2025-07-12 08:14 | XMS_ITS | Clinical Summary ---
Author Organization [facility] Address [address] [place] [address] Phone Care Team Providers Care Natural Remedy Consultant Name Role Phone Paco Cooley MD Primary Care Provider [phone] Allergies Active Allergy Reactions Criticality Noted Date [...] and treatment of lung cancer should this nocturnist physician what it is. Options discussed were continued [...] Hypertension 02/14/2022 Migraine 02/14/2022 Osteoporosis 02/14/2022 Scleroderma ([facility] V24, [facility] V28) 2 Thyroid nodule 02/14/2022 Encounters Date Type Department Care Team Description 06/26/2025 Telephone Orthopedic Surgery [facility] [address] [address] Edward Su DPM 06/14/2025 9:45 AM EDT Office Visit Orthopedic Surgery [facility] [address] [address] Edward Su DPM Right foot pain (Primary Dx); PAD (peripheral artery disease) ([facility] V24); Arthritis of both feet; Ulcer of toe of left foot, with fat layer exposed ([facility] V24, [facility] V28); Dermatophytosis of nail from Last 3 Months Surgical History Surgery Date Site/Laterality Comments OTHER SURGICAL HISTORY N/A PROCEDURE: [place] TOTAL ABDOMINAL HYSTERECT W/WO RMVL TUBE OVARY Medical History Medical History Date Comments Aortic regurgitation 02/14/2022 DX:Aortic r egurgitation CAD (coronary artery disease) 02/14/2022 DX :CAD (coronary artery disease) Cervical neuritis 02/14/2022 DX:Cervical ne uritis Cervicalgia 02/14/2022 DX:Cervicalgia COPD without exacerbation ([facility] V24, [facility] V28) 02/14/2022 DX:COPD without exacerbation (HCC) RIGOBERTO (generalized anxiety disorder) 02/14/2022 DX:RIGOBERTO (generalized anxiety disorder) Hypertension 02/14/2022 DX:Hypertension Migraine 02/14/2022 DX:Migraine Hyperlipidemia 02/14/2022 DX:Hyperlipidemi a Depression 02/14/2022 DX:Depression Osteoporosis 02/14/2022 DX:Osteoporosis Scleroderma ([facility] V24, [facility] V28) DX:Scleroderma (HCC) Glaucoma DX:Glaucoma GERD (gastroesophageal [...] Description 08/17/2025 9:15 AM EDT Ancillary Procedure [facility] [address] [facility] [address] [place] [address] 09/14/2025 8:30 AM EDT Office Visit Orthopedic Surgery - [place] [address] 175 [facility] [address] [place] [phone] Edward Su DPM 175 [facility] [address] [place] [address] Health Maintenance Due Date Last Done Comments [...] Routine 10:15 AM EDT Right foot pain from Last 3 Months Results * (ABNORMAL) Comprehensive metabolic panel (06/22/2025 11:50 AM EDT) Sodium 135 133 - 145 mmol/L LAB CHEMISTRY METHOD 06/22/2025 1:37 PM [facility] Potassium 4.7 3.5 - 5.5 mmol/L LAB CHEMISTRY METHOD 06/22/2025 1:37 PM [facility] Chloride 101 96 - 110 mmol/L LAB CHEMISTRY METHOD 06/22/2025 1:37 PM [facility] CO2 28 21 - 32 mmol/L LAB CHEMISTRY METHOD 06/22/2025 1:37 PM [facility] Anion Gap 6 3 - 11 LAB CHEMISTRY METHOD 06/22/2025 1:37 PM [facility] Glucose 96 70 - 100 mg/dL LAB CHEMISTRY METHOD 06/22/2025 1:37 PM [facility] BUN 27(H) 5 - 25 mg/dL LAB CHEMISTRY METHOD 06/22/2025 1:37 PM [facility] Creatinine 0.87 0.50 - 1.10 mg/dL LAB CHEMISTRY METHOD 06/22/2025 1:37 PM [facility] eGFR 73 >=60 mL/min/1. 73m2 LAB CHEMISTRY METHOD 06/22/2025 1:37 PM [facility] Comment:Calculation based on the Chronic Kidney Disease Epidemiology Collaboration (CKD-EPI) equation refit without adjustment for race. BUN/Creatinine Ratio 31.0 LAB CHEMISTRY METHOD 06/22/2025 1:37 PM [facility] Calcium 9.4 8.5 - 10.5 mg/dL LAB CHEMISTRY METHOD 06/22/2025 1:37 PM EDT [facility] AST (SGOT) 24 10 - 42 unit/L LAB CHEMISTRY METHOD 06/22/2025 1:37 PM EDT [facility] ALT (SGPT) 34 10 - 60 unit/L LAB CHEMISTRY METHOD 06/22/2025 1:37 PM EDT [facility] Alkaline Phosphatase 75 42 - 121 unit/L LAB CHEMISTRY METHOD 06/22/2025 1:37 PM EDT [facility] Total Protein 6.9 6.0 - 8.0 g/dL LAB CHEMISTRY METHOD 06/22/2025 1:37 PM EDT [facility] Albumin 3.5 3.2 - 5.0 g/dL LAB CHEMISTRY METHOD 06/22/2025 1:37 PM EDT [facility] Total Bilirubin 0.3 0.0 - 1.4 mg/dL LAB CHEMISTRY METHOD 06/22/2025 1:37 PM EDT [facility] Blood Venous blood specimen / Unknown Venipuncture / Unknown 06/22/2025 11:50 AM EDT 06/22/2025 12:36 PM EDT Edward Su DPM LAB BLOOD ORDERABLES Final Result [facility] [address] [place] [address], * XR Foot 3+ Views Right (06/14/2025 10:15 AM EDT) Anatomical Region Laterality Modality Lower Extremities, Foot Right Computed Radiography Narrative 06/14/2025 1:18 PM EDT 3 views right foot weightbearing:No fractures or dislocations. Some contracture at the hallux with some joint space narrowing and degenerative changes. Hardware is in place. Other areas are in rectus alignment Edward Su DPM IMG XR PROCEDURES Final Res ult from Last 3 Months Insurance [employer] MED[employer] Member Subscriber Plan / Payer (Ef fective 2022-Present) Name:Vaishali Evans Relation to Subscriber:Self Name:Vaishali Evans Payer ID:[id number] Group ID:[id number] Type:Not on file Address: [place] [address] [address] [phone] Care Teams Natural Remedy Consultant Relationship Specialty Start Date End Date Paco Cooley MD [address] [facility] DEVON Segura PCP - General 05/28/23
--- OUTSIDE RECORDS SUMMARY | 2025-07-12 08:14 | XMS_ITS | Patient Health Record ---
Author Organization [facility] Address [address] [place] [address] Care Team Providers Care Slat Basket Maker Helper Name Role Phone Tony Augustus Primary Care Provider [phone] Toñito John Unavailable Unavailable Allergies Allergen (clinical [...] Insured Coverage Start Date Coverage End Date [facility] [address] [address] [place], [place] [phone] [id number] Vaishali Evans Self - patient is the insured Medical (General) History Medical History History ICD Code COPD-emphysema HTN scleroderma osteoporosis cervicalgia AVR Gaffney's esophagus Takasubo cardiomyopathy MDD RIGOBERTO/ PAD Surgical History Surgery Date(Month/Year) rectal fistula 1977 ESAU/BSO endometriosus 1984 PTCA no stents 2010 Takasubo cardiomyopathy 2015 Hospitalization History Reason Date(Month/Year) Cardiomyopathy 2015 [facility] [place] [address]
--- OUTSIDE RECORDS SUMMARY | 2025-07-12 08:14 | XMS_ITS | Encounter Summary ---
Author Organization [facility] Address [address] [place] [address] [place] [phone] Phone Care Team Providers Care Production Dispatcher Name Role Phone Toñito John Primary Care Provider [phone] Rajesh Royal MD, DDS Unavailable [phone] Encounter Details Date Type Department Care Team (Late st Contact Info) Description 10/07/2022 Procedure Pass [facility] PERIOPER[facility]IVE DEPT [address] [place] [id number] Social History Tobacco Use Types Packs/Day [...] on filedocumented in this encounter Care Teams Production Dispatcher Relationship Specialty Start Date End Date Toñito John PA [address] [place] [address] PCP - General Unknown Provider Specialty 06/25/22 Rajesh Royal MD, DDS [address] [place] [address] [email or web address] 04/06/23 documented as of this encounter Additional Source Comments The information contained in this document represents components of the legal health record. It is not the complete legal health record.[facility]
[2025-07-12 08:24] VITALS: BP 122/76; PULSE 96; O2SAT 90; BMI 21.5
--- NOTE | 2025-07-12 08:24 | A.OFFVIS_ITS ---
Vital Signs 07/12/25 08:24 07/12/25 09:10 Height 5 ft 1 in Weight 114 lb BMI 21.5 BP 122/76 Blood Pressure Location Lt brachial Position Sitting Pulse 96 Pulse Oximetry (%) 90 L 96 Oxygen Delivery Method Room Air Room Air Intake Visit Reasons: gerd, us f/u Intake Note: Patient follow up for GERD and US results/ no lab results. Patient cc: abdominal discomfort, some constipation on and off. Patient is with some SOB and her O2 was 90. Denies any other GI issues. Home Health Rn Required: No Accompanied by: Self / Same As Patient Allergies Sulfa (Sulfonamide Antibiotics) Allergy (Severe, Verified 07/12/25 08:22) Hives HPI HPI gerd, us f/u: Details: Patient is a 69-year-old female with PMH of COPD and GERD. F/U GERD, constipation and for liver lesions noted on abdominal CT (March). Recent abdominal U/S performed to further evaluate these lesions. Pt reports some improvement in indigestion, with less frequent and less severe episodes since last visit. Continues to experience alternating bowel habits, with BM typically once daily in the morning, consistency fluctuating between Type 2 and Type 6 (Hopkins Stool Chart). Hydration and dietary modifications ongoing (increased water, fruits, veggies), but physical activity reduced due to leg pain/vascular issues ( low pulse rates ); vascular testing scheduled for Sep 2. Senna has provided partial relief, but stool regularity remains inconsistent. Pt expresses confusion regarding medication management due to pharmacy/packaging issues. No alarming GI sx (no blood in stool, nausea, or significant abd pain). Mild SOB with exertion persists; pt uses inhalers and breathing treatments intermittently. [facility] Medical History (Updated 07/12/25 @ 17:23 by Vani Maldonado CNP) Acid reflux Weight loss Elevated liver enzymes Constipation Abdominal pain COPD (chronic obstructive pulmonary disease) Heartburn Surgical History H/O colonoscopy History of esophagogastroduodenoscopy (EGD) History of cardiac catheterization History of foot surgery History of hysterectomy Family History Mother Glaucoma Diabetes Lung cancer Father Diabetes CHF (congestive heart failure) Prostate cancer Heart valve disease Social History Household Members: Friend(s) Alcohol intake: current Alcohol intake frequency: a few times a week Patient Tobacco Use Status: Current everyday Tobacco user Tobacco use type: Cigarette Cigarettes Per Day: 15 Years Smoked: 40 Second Hand Smoke Exposure: No Current occupational status: disabled Review of Systems Const Reports as per HPI ENT Reports as per HPI Card Reports as per HPI Resp Reports as per HPI GI Reports as per HPI Reports as per HPI Physical Exam Vital Signs: Last Vital Signs Pulse 96 07/12/25 08:24 BP 122/76 07/12/25 08:24 Pulse Ox 96 07/12/25 09:10 Oxygen Delivery Method Room Air 07/12/25 09:10 BMI result Body Mass Index 21.5 Const General: healthy appearing, no acute distress and well developed Nutritional Appearance: average body habitus Orientation/consciousness: patient oriented x3 HEENT Head: Yes normal to inspection, Yes normocephalic and Yes atraumatic Face and sinus: Yes normal facial exam Eyes General: appearance normal, both eyes and all related structures Neck Neck: Yes normal visual inspection Resp Effort & Inspection: respiratory distress Auscultation: clear to auscultation bilaterally and wheezes inspiratory wheezes Cardio Jugular venous distension: no JVD Rate: regular rate Rhythm: regular rhythm Heart sounds: S1 normal heart sound present, S2 normal heart sound present, no gallops and no murmurs GI Inspection: Yes normal to inspection, No distended and Yes striae Palpation (GI): Soft to palpation, not firm, nontender and No hepatosplenomegaly present Auscultation: normal bowel sounds Neuro General: patient oriented x3 Gait exam (Neuro): Normal gait present Psych Appearance: grossly normal Mental Status: mental status grossly normal Speech and movement: Normal speech and movement present Affect: normal affect Attitude: cooperative Thought process: Normal thought process present Thought content: Normal thought content present Insight: Good insight present (Psych) Judgement: Good judgement present (Psych) Results Reviewed Results Reviewed: Date of Service: 06/26/25 Procedure(s): US abdomen limited Accession Number(s): [id number] cc: Toñito John; Vani Maldonado [employer]LLUTION AUDITOR~ EXAMINATION: US ABDOMEN LIMITED CLINICAL INFORMATION: Abnormal levels of liver enzymes.. COMPARISON: Correlated with CT dated April 10, 2025. TECHNIQUE: Real-time ultrasound of the right upper quadrant abdomen using grayscale technique. FINDINGS: Limited examination. Liver measures 13 cm per the technologist. Coarse echotexture. No gross solid or cystic lesions. The hypodense lesions demonstrated on recent CT are not depicted on this exam. Main portal vein is patent with normal hepatopedal flow direction. No intrahepatic biliary ductal dilatation. Gallbladder is fluid-filled contracted. No pericholecystic fluid collection or gallbladder wall thickening. Common bile duct measures 6 mm. No peripancreatic fluid collections. Right kidney measures 10 cm. Normal echotexture. Normal renal cortical thickness. No hydronephrosis. No gross solid or cystic lesion. No free fluid in the hepatorenal fossa. US/US abdomen limited IMPRESSION: No cholelithiasis or gross choledocholithiasis. Probable hepatic steatosis versus hepatocellular disease. Hepatic lesions detected by the ultrasound. If clinically indicated recommend dedicated dynamic enhanced MRI brain liver. No gross ascites. No hydronephrosis, right kidney. ADDENDUM #1 TYPOGRAPHIC ERROR under impression we should read as follow: NO HEPATIC LESIONS DETECTED BY ULTRASOUND. IF CLINICALLY INDICATED RECOMMEND DEDICATED DYNAMIC ENHANCED MRI LIVER Electronically signed by: Pro Briceno MD 07/07/2025 10:13 AM EDT Assessment & Plan Assessment & Plan (1) Constipation: Comment: 05/27/21 Colonoscopy complete with fair prep- diverticulosis, internal hemorrhoids. Recommendations for repeat in 5 year ( 2025) Code(s): K59.00 - Constipation, unspecified Category: Medical Qualifiers: Constipation type: unspecified constipation type Qualified Code(s): K59.00 - Constipation, unspecified Plan: Persistent but improving; Senna partially effective. Will trial lactulose. Rationale: Ongoing alternating stool patterns; goal to achieve Type 3?4 stools. Medications: Initiate lactulose 15 mL QD (may titrate to 30 mL QD PRN per stool consistency). Continue Senna. Lifestyle Recommendations: Reinforce increased hydration, regular fiber, and increased activity as tolerated. Encourage walking post-vascular testing if leg pain resolves. Provided Hopkins Stool Chart for self-monitoring. (2) Heartburn: Code(s): R12 - Heartburn Category: Medical Plan: Stable, fewer breakthrough sx. Rationale: Improved w/ esomeprazole; PRN famotidine for intermittent sx. Medications: Esomeprazole QAM before meals; famotidine PRN. Updated Rx sent to [facility]. Lifestyle Recommendations: Continue dietary adjustments; avoid lying down >=60 min post-meals. Follow-Up Plan: Monitor sx; adjust regimen if breakthrough sx increase. (3) Elevated liver enzymes: Code(s): R74.8 - Abnormal levels of other serum enzymes Category: Medical Plan: Likely benign cysts per CT; U/S wihout significant findings; gallbladder, bile ducts, or abd structures. Fib-4 score for 1.72 points, excludes advanced fibrosis. Autoimmune panel pending. Additional Testing: Shared decision making for MRI only if labs abnormal or sx change. Follow-Up Plan: Reassess after labs; MRI if indicated. (4) COPD (chronic obstructive pulmonary disease): Code(s): J44.9 - Chronic obstructive pulmonary disease, unspecified Category: Medical Qualifiers: COPD type: unspecified COPD Qualified Code(s): J44.9 - Chronic obstructive pulmonary disease, unspecified Plan: Wheezing on exam, mild. SpO2 96. Hx scleroderma, COPD, former smoker; no acute infection signs. Medications: Continue inhalers; home breathing tx PRN. Monitoring: Watch for increase SOB, purulent sputum, fever. Notify pulm/PCP if sx worsen. Follow-Up Plan: Continue current regimen; coordinate w/ pulm/PCP as needed. Plan Follow-up in 3 months or sooner as needed Time: I spent a total of 30 minutes on the date of encounter which includes: Preparing to see the patient (reviewed previous documentation, test results and medical history) Performing a medically appropriate exam and/or evaluation Ordering medications, tests, and procedures Documenting clinical information in the health record Medications: New lactulose Take 15-30mL daily for constipation. 3,785 mL 0RF constipation Changed From famotidine 40 mg (2 x 20 mg) PO DAILY 90 tabs 0RF To famotidine Take two tablets as needed for breakthrough symptoms 40 mg (2 x 20 mg) PO DAILY 90 tabs 0RF From esomeprazole magnesium 40 mg PO DAILY 90 caps 1RF To esomeprazole magnesium Take one tablet in the morning, best taken on the empty stomach and least 30 minutes before meals 40 mg PO DAILY 90 caps 1RF From sennosides-docusate sodium 8.6-50 mg (Senna Plus) 2 tab-caps (2 x 8.6-50 mg) PO BEDTIME 180 caps 1RF To sennosides-docusate sodium 8.6-50 mg (Senna Plus) take two tablets at bedtime 2 tab-caps (2 x 8.6-50 mg) PO BEDTIME 180 caps 1RF From famotidine Take two tablets as needed for breakthrough symptoms 40 mg (2 x 20 mg) PO DAILY 90 tabs 0RF To famotidine Take two tablets as needed for breakthrough symptoms 40 mg (2 x 20 mg) PO DAILY PRN 90 tabs 0RF acid reflux Refilled sennosides-docusate sodium 8.6-50 mg (Senna Plus) take two tablets at bedtime 2 tab-caps (2 x 8.6-50 mg) PO BEDTIME 180 caps 1RF Coding Level of Care Code Established Pt Est Pt Level 4 (61401) Patient Type Established Diagnoses Constipation, unspecified constipation type K59.00 Constipation type: unspecified constipation type Heartburn R12 Elevated liver enzymes R74.8 Chronic obstructive pulmonary disease, unspecified COPD type J44.9 COPD type: unspecified COPD
[2025-07-12 09:10] VITALS: O2SAT 96
== END 2025-07-12 09:13 | disposition home or self-care (01) ==
LOC: HO.HGI 08:10
PROVIDERS: PCP Physician Assistant Medical; Visit Provider Nurse Practitioner Family
DX: K59.00 Constipation, unspecified (principal); R12 Heartburn; R74.8 Abnormal levels of other serum enzymes; J44.9 Chronic obstructive pulmonary disease, unspecified
CPT/HCPCS: 99214

== ENCOUNTER 2025-07-12 08:09 | Outpatient (REF) | payer OTHER, SELFPAY ==
[2025-07-12 11:34] LABS: Gamma Glutamyl Transpeptidase 91 U/L (7-33)
[2025-07-17 16:24] LABS: Anti Nuclear Antibody Pattern Nuclear, Centromere; Anti Nuclear Antibody Screen POSITIVE (NEGATIVE); Anti Nuclear Antibody Titer 1:1280 titer
== END 2025-07-12 08:10 | disposition home or self-care (01) ==
LOC: HO.LAB 08:09
PROVIDERS: PCP Physician Assistant Medical; Visit Provider Nurse Practitioner Family
DX: R74.8 Abnormal levels of other serum enzymes (principal); K59.00 Constipation, unspecified; R12 Heartburn; J44.9 Chronic obstructive pulmonary disease, unspecified; F17.210 Nicotine dependence, cigarettes, uncomplicated
CPT/HCPCS: 36415; 82977; 86015; 86038; 86039; 86381; 99212